=== PATIENT | male | born 1950 | race Caucasian/White ===

== ENCOUNTER 2017-08-11 18:02 | Inpatient (IN) | payer MEDICARE ==
[2017-08-11 19:00] LABS: PTT 29.9 SEC (22.9-36.1)
[2017-08-11 19:03] LABS: Hematocrit 20.2 % (42.0-52.0); Mean Platelet Volume 6.3 fL (7.4-10.4); Red Blood Cell (RBC) Count 2.57 mill/uL (4.70-6.10); White Blood Cell (WBC) Count 6.1 thou/uL (4.8-10.8)
[2017-08-11 19:09] LABS: ALT (SGPT) 29 U/L (8-55); AST (SGOT) 33 U/L (5-34); Alkaline Phosphatase 101 U/L (40-150); Anion Gap 13 mmol/L (10-20); BUN (Urea Nitrogen) 27 mg/dL (8.4-25.7); Bilirubin, Total 0.2 mg/dL (0.2-1.2); CK (CPK) 465 U/L (30-200); Calc. Creatinine Clearance 0 mL/min (70-130); Calcium 8.5 mg/dL (7.8-10.44); Carbon Dioxide 22 mmol/L (23-31); Chloride 106 mmol/L (98-107); Estimated GFR-MDRD 90; Globulin 3.2 g/dL (2.4-3.5); Lipase 74 U/L (8-78); Protein, Total 6.7 g/dL (5.8-8.1)
[2017-08-11 19:21] LABS: Anisocytosis SLIGHT = 6-15 cells (100X) (0-5/hpf); Band 8 % (5-11); Hypochromia SLIGHT = 6-15 cells (100X) (0-5/hpf); Microcytosis SLIGHT = 6-15 cells (100X) (0-5/hpf); Neutrophil 71 % (42-75); Nucleated RBC 2 % (0); Ovalocytes SLIGHT = 2-5 cells (100X) (0-1/hpf); Polychromasia MODERATE = 3-4 cells (100X) (0-2/hpf); Schistocytes SLIGHT = 2-5 cells (100X) (0-1/hpf); Spherocytes SLIGHT = 1-5 cells (100X) (None Seen); Target Cells SLIGHT = 2-5 cells (100X) (0-1/hpf)
[2017-08-11] MEDS ORDERED: Ondansetron HCl/PF 4 MG/2 ML Vial IVP PRN (20:42)
[2017-08-11] MEDS ORDERED: HYDROcodone/Acetaminophen 5/325 mg Tablet PO PRN (20:42)
[2017-08-11] MEDS ORDERED: Acetaminophen 325 MG TAB PO PRN (20:42)
--- NOTE | 2017-08-11 20:42 | PDOC.EVN ---
Event Note - Event Note Event Note: [id number] H&p dictated 1. Acute on chronic anemia 2. Barrets esophagus 3. H/O BipolaR PLAn; SEE ORDERS disorder
[2017-08-11] MEDS ORDERED: Sodium Chloride 0.9% 1,000 ML IV SCH (20:45)
[2017-08-11 21:40] VITALS: BMI 21.9
--- NOTE | 2017-08-11 23:22 | ULT ---
BILATERAL LOWER EXTREMITY VENOUS DOPPLER ULTRASOUND: 08/11/17 HISTORY: Uncontrollable constant leg movement of the bilateral lower extremities, spinal stenosis. TECHNIQUE: Gifford scale ultrasound with color flow and spectral doppler imaging of the deep venous systems of the lower extremities performed bilaterally. FINDINGS: There is good flow, compression and augmentation noted in the common femoral, femoral, deep femoral, popliteal, and posterior tibial and greater saphenous veins on either side. IMPRESSION: No evidence of DVT in either lower extremity. POS: JULIAN
--- NOTE | 2017-08-12 02:03 | HP ---
DATE OF ADMISSION: 08/11/2017 CHIEF COMPLAINT: Weakness and abnormal labs. HISTORY OF PRESENT ILLNESS: Patient is a 67-year-old male with past medical history of erosive reanna ritis, microcytic anemia, Jackson's esophagus, bipolar disorder, who came to the ER because of the a nemia and weakness. Patient does have weakness for the past few weeks with loss of strength, patien t went to the PCP and had routine lab work done and patient was found to be anemic, so patient was a dvised to come to the ER. Patient denies any chest pain, denies any palpations, denies lightheadedn ess, denies nausea, denies vomiting. He complains of some bilateral lower extremity swelling also. Denies any fever, denies any chills. Denies palpitations, denies syncope, denies any bleeding per rectum. Denies any melena, denies any black stools. PAST MEDICAL HISTORY: As per HPI. PAST SURGICAL HISTORY: EGD, back surgeries, hip surgeries. SOCIAL HISTORY: Denies smoking, denies alcohol, denies any drugs. FAMILY HISTORY: Denies any heart problems. REVIEW OF SYSTEMS: Constitutional: Denies any fever, denies any chills. Positive for fatigue. Ey es: Denies vision problems. Ears: Denies hearing loss. Neck: Denies any neck pain. Cardiovascu lar system: Denies any chest pain, denies palpitations. Respiratory system: Denies any cough, den ies sputum production. Gastrointestinal: Denies nausea, vomiting. Cranial nerve system: Denies s yncope, denies lightheadedness. Psychiatric: Denies anxiety. Integumentary: Denies any rash. Mu sculoskeletal: Positive for bilateral lower extremity edema. All other review of systems are revie wed and are negative. PHYSICAL EXAMINATION: CONSTITUTIONAL/VITAL SIGNS: At the time of H and P performed, blood pressure is 141/102, heart rate 18, pulse ox 97%. GENERAL: The patient appears tired. Anterior nares patent. Nose normal. Ears: Normal. Teeth no rmal. Tongue is moist. NECK: Supple. No JVD. CARDIOVASCULAR SYSTEM: S1, S2 present. Regular rate and rhythm. No murmurs, no rubs, no gallops. RESPIRATORY SYSTEM: No wheezing, no rhonchi. Breath sounds bilaterally. GASTROINTESTINAL: Abdomen, soft, nontender, no guarding, no organomegaly, no masses felt. MUSCULOSKELETAL: 2+ edema present. INTEGUMENTARY: No rashes are seen. PSYCHIATRIC: Mood is appropriate at this time. CRANIAL NERVES SYSTEM: Awake, follows commands. Strength intact, sensory intact. LABORATORY DATA: At the time of H and P performed, white count 6.1, hemoglobin 6.1, platelet count is 418. BMP showed sodium 137, potassium 4, chloride 106, CO2 22, BUN 27, creatinine 0.85. PT 13, INR 1. ASSESSMENT AND PLAN: The patient is 67 years old male: 1. Acute on chronic anemia. Plan to check iron studies. Plan to type and cross and transfuse a un it of packed RBCs. We will monitor hemoglobin closely. Plan to consult GI to evaluate the patient. 2. History of Jackson's esophagus. Plan to start patient on Protonix 40 mg b.i.d. We will monitor the patient closely. 3. History of bipolar disorder. Continue home medications. 4. Elevated blood pressure. Monitor blood pressure, p.r.n. blood pressure meds. 5. Bilateral lower extremity edema. Plan to do ultrasound of the lower extremities to rule out any deep vein thrombosis. The case was discussed in detail with the patient and family members, and with RN also.
[2017-08-12] MEDS ORDERED: guaiFENesin ER 600 MG TAB PO SCH (04:00)
[2017-08-12 04:39] LABS: #Eosinphils 0.2 thou/uL (0.0-0.7); #Monocytes 0.8 thou/uL (0.11-0.59); %Basophils 0.3 % (0.0-1.0); %Eosinophils 3.1 % (0.0-10.0); %Lymphocytes 17.4 % (21.0-51.0); %Monocytes 12.5 % (0.0-10.0); Hematocrit 20.5 % (42.0-52.0); Mean Platelet Volume 6.3 fL (7.4-10.4); Red Blood Cell (RBC) Count 2.55 mill/uL (4.70-6.10)
[2017-08-12 05:05] LABS: Anion Gap 10 mmol/L (10-20); BUN (Urea Nitrogen) 21 mg/dL (8.4-25.7); Calc. Creatinine Clearance 86 mL/min (70-130); Calcium 8.1 mg/dL (7.8-10.44); Carbon Dioxide 23 mmol/L (23-31); Chloride 108 mmol/L (98-107); Estimated GFR-MDRD Greater than 90
[2017-08-12 05:44] LABS: Iron 25 ug/dL (65-175)
[2017-08-12] MEDS ORDERED: hydrALAZINE 20 MG/ML VIAL SLOW IVP PRN (07:02)
[2017-08-12] MEDS ORDERED: Milk Of Magnesia 30 ML UDCUP PO PRN (07:02)
[2017-08-12] MEDS ORDERED: Eucerin (Mineral Oil/Petrolatum,White) 30 gm Jar TOP PRN (07:02)
[2017-08-12] MEDS ORDERED: Temazepam 15 MG CAP PO PRN (07:02)
[2017-08-12] MEDS ORDERED: Diabetic Tussin 200 MG/10 ML UDCUP PO PRN (07:02)
[2017-08-12] MEDS ORDERED: Loperamide HCl 2 MG CAP PO PRN (07:02)
[2017-08-12] MEDS ORDERED: Loratadine 10 MG TAB PO PRN (07:02)
[2017-08-12] MEDS ORDERED: Senokot 8.6 MG TAB PO PRN (07:02)
[2017-08-12] MEDS ORDERED: Chloraseptic Spray 180 ml Bottle PO PRN (07:02)
[2017-08-12] MEDS ORDERED: Ondansetron ODT 4 MG TAB PO PRN (07:02)
[2017-08-12] MEDS ORDERED: Mag-Al 1200 mg/1200 mg/30 ML UDCUP PO PRN (07:02)
[2017-08-12] MEDS ORDERED: Sodium Chloride 0.65% Nasal 44 ML BOT EA NARE PRN (07:02)
[2017-08-12] MEDS: Ferrous Sulfate 325 MG TAB PO SCH ×2 (08:23→17:18)
[2017-08-12] MEDS: guaiFENesin ER 600 MG TAB PO SCH ×2 (08:23→20:54)
[2017-08-12] MEDS ORDERED: FLU VACC TS2017-18 (>65YR) 0.5 ML SYRINGE IM ONE (09:00)
--- NOTE | 2017-08-12 11:22 | PDOC.PN ---
- Subjective Encounter Start Date: 08/12/17 Encounter Start Time: 08:35 -: old records requested/rev pt is sleepy but arousable, no active GI bleeding, Patient seen and examined. No new complaints. No overnight events - Objective MAR Reviewed: Yes Vital Signs & Weight: Vital Signs (12 hours) Temp Pulse Pulse Resp BP BP Pulse Ox 08/12/17 08:35 98.3 F 81 18 167/91 H 08/12/17 08:00 97.6 F 78 16 93 L 08/12/17 07:21 97.6 F 78 16 155/89 H 93 L 08/12/17 06:31 98.2 F 84 17 160/83 H 98 08/12/17 06:14 97.7 F 85 18 167/89 H 97 08/12/17 04:16 98.2 F 87 24 H 153/81 H 97 08/11/17 23:33 98 F 90 18 147/82 H Weight Weight 140 lb I&O: 08/11/17 08/12/17 08/13/17 06:59 06:59 06:59 Intake Total 810 350 Balance 810 350 Result Diagrams: 08/12/17 03:31 08/12/17 03:31 Phys Exam - Physical Examination Constitutional: NAD HEENT: PERRLA, moist MMs, sclera anicteric Neck: no JVD, supple Respiratory: no wheezing, no rales, no rhonchi Cardiovascular: RRR, no significant murmur, no rub Gastrointestinal: soft, non-tender, no distention, positive bowel sounds Musculoskeletal: no edema, pulses present Neurological: non-focal, normal sensation, moves all 4 limbs Lymphatic: no nodes Psychiatric: normal affect Skin: no rash, normal turgor Dx/Plan (1) Symptomatic anemia Code(s): D64.9 - ANEMIA, UNSPECIFIED Status: Acute (2) Elevated blood pressure reading with diagnosis of hypertension Code(s): I10 - ESSENTIAL (PRIMARY) HYPERTENSION Status: Acute (3) Chronic headaches Code(s): R51 - HEADACHE Status: Chronic (4) Esophagitis, erosive Code(s): K22.10 - ULCER OF ESOPHAGUS WITHOUT BLEEDING Status: Chronic (5) Iron deficiency anemia Code(s): D50.9 - IRON DEFICIENCY ANEMIA, UNSPECIFIED Status: Chronic Qualifiers: (6) Lumbar spinal stenosis Code(s): M48.06 - SPINAL STENOSIS, LUMBAR REGION * DO NOT USE * Status: Chronic - Plan cont current plan of care * monitor BP and start BP meds with lisinopril * GI consulted * getting blood transfusion * medication reviewed as below * symptomatic treatment. Review of Systems - Review of Systems ENT: negative: Ear Pain, Ear Discharge, Nose Pain, Nose Discharge, Nose Congestion, Mouth Pain, Mouth Swelling, Throat Pain, Throat Swelling, Other Respiratory: negative: Cough, Dry, Shortness of Breath, Hemoptysis, SOB with Excertion, Pleuritic Pain, Sputum, Wheezing Cardiovascular: negative: Chest Pain, Palpitations, Orthopnea, Paroxysmal Noc. Dyspnea, Edema, Light Headedness, Other Gastrointestinal: negative: Nausea, Vomiting, Abdominal Pain, Diarrhea, Constipation, Melena, Hematochezia, Other Genitourinary: negative: Dysuria, Frequency, Incontinence, Hematuria, Retention , Other Musculoskeletal: negative: Neck Pain, Shoulder Pain, Arm Pain, Back Pain, Hand Pain, Leg Pain, Foot Pain, Other - Medications/Allergies Allergies/Adverse Reactions: Allergies Allergy/AdvReac Type Severity Reaction Status Date / Time No Known Drug Allergies Allergy Verified 08/11/17 21:38 Medications: Current Medications Acetaminophen (Tylenol) 650 mg PO Q4H PRN PRN Reason: Headache/Fever or Pain Hydrocodone Bitart/Acetaminophen ([place] 5/325) 1 tab PO Q4H PRN PRN Reason: Moderate Pain (4-6) Al Hydroxide/Mg Hydroxide (Maalox) 15 ml PO Q4H PRN PRN Reason: Heartburn or Indigestion Ferrous Sulfate (Feosol) 325 mg PO BID-[facility] Last Admin: 08/12/17 08:23 Dose: 325 mg Guaifenesin (Mucinex) 600 mg PO Q12HR [facility] Last Admin: 08/12/17 08:23 Dose: 600 mg Guaifenesin (Robitussin Sf) 200 mg PO Q4H PRN PRN Reason: Cough Hydralazine HCl (Apresoline) 10 mg SLOW IVP Q4H PRN PRN Reason: Systolic BP > 180 Loperamide HCl (Imodium) 2 mg PO PRN PRN PRN Reason: Diarrhea/Loose Stools Loratadine (Claritin) 10 mg PO DAILYPRN PRN PRN Reason: Sinus Symptoms Magnesium Hydroxide (Milk Of Magnesium) 30 ml PO DAILYPRN PRN PRN Reason: Constipation Mineral Oil/White Petrolatum (Eucerin Cream) 0 gm TOP BIDPRN PRN PRN Reason: Dry Skin Ondansetron HCl (Zofran) 4 mg IVP Q6H PRN PRN Reason: Nausea/Vomiting Ondansetron HCl (Zofran Odt) 4 mg PO Q6H PRN PRN Reason: Nausea/Vomiting Pantoprazole Sodium (Protonix) 40 mg PO BID [facility] Last Admin: 08/12/17 08:23 Dose: 40 mg Phenol (Chloraseptic [place] 180 Ml Bot) 0 ml PO PRN PRN PRN Reason: Sore Throat Senna (Senokot) 2 tab PO HSPRN PRN PRN Reason: Constipation Sodium Chloride (Flush - Normal Saline) 10 ml IVF Q12HR [facility] Last Admin: 08/12/17 08:23 Dose: Not Given Sodium Chloride (Flush - Normal Saline) 10 ml IVF PRN PRN PRN Reason: Saline Flush Sodium Chloride ([place] Nasal [place] 0.65%) 0 ml EA NARE QIDPRN PRN PRN Reason: Nasal Congestion Temazepam (Restoril) 15 mg PO HSPRN PRN PRN Reason: Insomnia
[2017-08-12] MEDS ORDERED: Lisinopril 5 MG TAB PO SCH (12:20)
--- NOTE | 2017-08-12 14:24 | CON ---
DATE OF CONSULTATION: 08/12/2017 REFERRING PHYSICIAN: [facility] Boliv[facility] REASON FOR CONSULTATION: Symptomatic anemia. HISTORY OF PRESENT ILLNESS: Mr. Yobani Quach is a 67-year-old male who has been seeing Nydia Hall for many years. The patient has been feeling tired and having poor energy over the last several weeks. The patient was seen by Dr. Hall and had a CBC done. He was found to have s evere anemia with a hemoglobin of 6.1. The patient was advised to go the ER for admission. The pat ron has had anemia over the years. He has seen Dr. Dagoberto Bass in 06/2015 with severe anemi a. At that time the hemoglobin was as low as 4.8. He was transfused. The anemia have is actually microcytic. The patient had a colonoscopy by Dr. Bass was in June of 2015 and was found to h ave an ulcer in the rectosigmoid junction. It was felt the ulcer was most likely from the NSAID med ications he was taking before. An EGD done revealing severe erosive esophagitis and Jackson's muco sa. The patient has been hospitalized subsequently again in 2015 and he was seen again by Dr. Darek bergeron. He had an EGD in August of 2016 and was found to have a hiatus hernia and also Jackson's mucos a. The patient is a very fragile looking skinny male. He says his weight is the same as before. N o history of any weight loss. The patient denies abdominal pain, nausea, vomiting. No history of d ysphagia or odynophagia. No hematochezia or any melena. His bowel movements are fairly regular. H e also denies a history of hematuria. The patient has had chronic back pain and has had multiple jack rgeries over the years. He does take NSAID medicines off and on. Although he has history of bipola r disorder, he is not taking medicines. There is also questionable history of ADHD. The admitting CBC showed hemoglobin 6.1, hematocrit 20.2, MCV 78.8. He is receiving blood transfusi on at the present time. The patient has no other relevant history. ALLERGIES: None. SOCIAL HISTORY: The patient does not smoke or drink alcohol. MEDICAL ILLNESSES: 1. Chronic acid reflux. 2. Jackson's mucosa. 3. Hiatus hernia. 4. Bipolar disorder. 5. Degenerative joint disease of the back and has had multiple surgeries. SURGERIES: 1. Multiple surgeries, back surgeries. 2. Hernia repair. 3. EGD and colonoscopy in 2015 and repeat EGD in 2016. MEDICATIONS: List reviewed. He is on lisinopril, loperamide, magnesium, ferrous sulfate, hydrocodo ne. FAMILY HISTORY: Unremarkable. SOCIAL HISTORY: The patient lives alone in [place]. He has no immediate family in the vicinity. 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 RESPIRATORY: No history of chronic cough, hemoptysis, dyspnea. CARDIOVASCULAR: No chest pain, no palpitations, exertional dyspnea, orthopnea or PND. GASTROINTESTINAL: As in history of present illness. GENITOURINARY: No dysuria, hematuria or frequency of urination. MUSCULOSKELETAL: History of chronic back pain and does take NSAID medicines on a regular basis. NEUROPSYCHIATRIC: He has a history of ADHD and bipolar disorder. He is not taking any medication. ENDOCRINE/HEMATOLOGICAL: Unremarkable. PHYSICAL EXAMINATION: GENERAL: He is a very fragile looking male, appears comfortable. He is awake, alert, oriented to t arleen, place and person. VITAL SIGNS: Temperature 98.3 degrees Fahrenheit, pulse 78, blood pressure is 167/91. HEENT: Conjunctivae are clear. NECK: Supple. No adenitis or thyromegaly noted. CARDIOVASCULAR: First and second heart sounds normal. LUNGS: Clear to auscultation. ABDOMEN: Soft to palpate. Abdomen is nontender. There is no organomegaly or masses. EXTREMITIES: Reveal no edema. LABORATORY: On admission: WBC 6100, hemoglobin 6.1, hematocrit 20.2, MCV 78.8, platelet count 418, 000, polymorphs 71, lymphocytes 16. Serum chemistries show sodium 137, potassium 4.0, chloride 106, bicarbonate 22, BUN is 27, creatinine 0.85. Serum iron is 25, TIBC 364. CLINICAL IMPRESSION: Recurrent microcytic anemia. He does take NSAID medication on a regular basis because of chronic back pain. The patient has had similar episodes in the past. He was admitted 2 and also in 2016. An EGD showed Jackson's mucosa, hiatus hernia. A colonoscopy in 2014 was bas ically negative. Based on the above information, I believe he has anemia most likely from regular u se of NSAID medication. The patient has no history of overt gastrointestinal bleeding. RECOMMENDATIONS: 1. Transfuse. 2. Follow up H\T\H. 3. I did speak to Mr. Quach about having EGD and colonoscopy. He is agreeable. I will plan for the procedure tomorrow. I will make further recommendations. If the endoscopy fails to reveal any definite pathology, I will refer to Hematology for opinion and treatment.
[2017-08-12] MEDS ORDERED: GoLYTELY 4,000 ml Bottle PO SCH (17:00)
[2017-08-12] MEDS: Lisinopril 5 MG TAB PO SCH (20:54)
[2017-08-13 04:42] LABS: #Eosinphils 0.1 thou/uL (0.0-0.7); #Lymphocytes 0.8 thou/uL (1.20-3.40); #Monocytes 0.5 thou/uL (0.11-0.59); #Neutrophils 3.6 thou/uL (1.40-6.50); %Eosinophils 2.2 % (0.0-10.0); %Monocytes 10.4 % (0.0-10.0); Hematocrit 30.9 % (42.0-52.0); Mean Platelet Volume 6.3 fL (7.4-10.4); Red Blood Cell (RBC) Count 3.78 mill/uL (4.70-6.10)
[2017-08-13 05:01] LABS: Anion Gap 10 mmol/L (10-20); BUN (Urea Nitrogen) 9 mg/dL (8.4-25.7); Calc. Creatinine Clearance 92 mL/min (70-130); Calcium 8.4 mg/dL (7.8-10.44); Carbon Dioxide 27 mmol/L (23-31); Chloride 104 mmol/L (98-107); Estimated GFR-MDRD Greater than 90
[2017-08-13] MEDS ORDERED: Benzocaine 20% Spray 60 ML CAN ONE (08:01)
[2017-08-13] MEDS ORDERED: Lidocaine 1% PF 5 ML VIAL ONE (08:40)
[2017-08-13] MEDS ORDERED: Propofol 200 MG/20 ML VIAL ONE (08:40)
[2017-08-13] MEDS ORDERED: PHENYLEPHRINE-NS 100 MCG/ML 10 ML SYRINGE ONE ×2 (08:40→09:37)
[2017-08-13] MEDS ORDERED: Potassium Chloride 20 MEQ TAB PO SCH (09:00)
[2017-08-13] MEDS ORDERED: Meperidine HCl/PF 25 MG/ML VIAL SLOW IVP PRN (09:30)
[2017-08-13] MEDS ORDERED: Morphine Sulfate 2 MG/ML SYRINGE SLOW IVP PRN (09:30)
[2017-08-13] MEDS ORDERED: Ondansetron HCl/PF 4 MG/2 ML Vial IVP PRN (09:30)
[2017-08-13] MEDS ORDERED: Promethazine HCl 25 MG/ML VIAL SLOW IVP PRN (09:30)
[2017-08-13] MEDS ORDERED: Promethazine HCl 25 MG/ML VIAL IM PRN (09:30)
[2017-08-13] MEDS: guaiFENesin ER 600 MG TAB PO SCH ×2 (10:16→13:31)
[2017-08-13] MEDS: Ferrous Sulfate 325 MG TAB PO SCH ×2 (10:16→17:44)
[2017-08-13] MEDS: Lisinopril 5 MG TAB PO SCH (10:17)
--- NOTE | 2017-08-13 11:12 | PDOC.PN ---
- Subjective Encounter Start Date: 08/13/17 Encounter Start Time: 08:20 Patient seen and examined. No new complaints. No overnight events - Objective MAR Reviewed: Yes Vital Signs & Weight: Vital Signs (12 hours) Temp Pulse Resp BP BP Pulse Ox 08/13/17 10:17 64 100/68 08/13/17 08:15 98.2 F 72 16 150/88 H 96 Weight Weight 140 lb I&O: 08/12/17 08/13/17 08/14/17 06:59 06:59 06:59 Intake Total 810 5350 Balance 810 5350 Result Diagrams: 08/13/17 03:33 08/13/17 03:33 Phys Exam - Physical Examination Constitutional: NAD HEENT: PERRLA, moist MMs, sclera anicteric Neck: no JVD, supple Respiratory: no wheezing, no rales, no rhonchi Cardiovascular: RRR, no significant murmur, no rub Gastrointestinal: soft, non-tender, no distention, positive bowel sounds Musculoskeletal: no edema, pulses present Neurological: non-focal, normal sensation, moves all 4 limbs Psychiatric: normal affect, A&O x 3 Skin: no rash, normal turgor Dx/Plan (1) Symptomatic anemia Code(s): D64.9 - ANEMIA, UNSPECIFIED Status: Acute (2) Elevated blood pressure reading with diagnosis of hypertension Code(s): I10 - ESSENTIAL (PRIMARY) HYPERTENSION Status: Acute (3) Chronic headaches Code(s): R51 - HEADACHE Status: Chronic (4) Esophagitis, erosive Code(s): K22.10 - ULCER OF ESOPHAGUS WITHOUT BLEEDING Status: Chronic (5) Iron deficiency anemia Code(s): D50.9 - IRON DEFICIENCY ANEMIA, UNSPECIFIED Status: Chronic Qualifiers: (6) Lumbar spinal stenosis Code(s): M48.06 - SPINAL STENOSIS, LUMBAR REGION * DO NOT USE * Status: Chronic - Plan cont current plan of care, plan discussed w/ family * proper response with blood transfusion * s/p EGD and colonoscopy today, found with ulcer * will repeat labs tomorrow * regular diet * if H & H stable tomorrow, will discharge tomorrow * advised to avoid nsaid and alcohol * medication reviewed as below * symptomatic treatment. Review of Systems - Review of Systems ENT: negative: Ear Pain, Ear Discharge, Nose Pain, Nose Discharge, Nose Congestion, Mouth Pain, Mouth Swelling, Throat Pain, Throat Swelling, Other Respiratory: negative: Cough, Dry, Shortness of Breath, Hemoptysis, SOB with Excertion, Pleuritic Pain, Sputum, Wheezing Cardiovascular: negative: Chest Pain, Palpitations, Orthopnea, Paroxysmal Noc. Dyspnea, Edema, Light Headedness, Other Gastrointestinal: negative: Nausea, Vomiting, Abdominal Pain, Diarrhea, Constipation, Melena, Hematochezia, Other Genitourinary: negative: Dysuria, Frequency, Incontinence, Hematuria, Retention , Other Musculoskeletal: negative: Neck Pain, Shoulder Pain, Arm Pain, Back Pain, Hand Pain, Leg Pain, Foot Pain, Other Skin: negative: Rash, Lesions, Guillermo, Bruising, Other - Medications/Allergies Allergies/Adverse Reactions: Allergies Allergy/AdvReac Type Severity Reaction Status Date / Time No Known Drug Allergies Allergy Verified 08/11/17 21:38 Medications: Current Medications Acetaminophen (Tylenol) 650 mg PO Q4H PRN PRN Reason: Headache/Fever or Pain Last Admin: 08/13/17 06:19 Dose: 650 mg Hydrocodone Bitart/Acetaminophen ([place] 5/325) 1 tab PO Q4H PRN PRN Reason: Moderate Pain (4-6) Al Hydroxide/Mg Hydroxide (Maalox) 15 ml PO Q4H PRN PRN Reason: Heartburn or Indigestion Ferrous Sulfate (Feosol) 325 mg PO BID-[facility] Last Admin: 08/13/17 10:16 Dose: 325 mg Guaifenesin (Mucinex) 600 mg PO Q12HR [facility] Last Admin: 08/13/17 10:16 Dose: 600 mg Guaifenesin (Robitussin Sf) 200 mg PO Q4H PRN PRN Reason: Cough Hydralazine HCl (Apresoline) 10 mg SLOW IVP Q4H PRN PRN Reason: Systolic BP > 180 Lisinopril (Zestril) 5 mg PO BID [facility] Last Admin: 08/13/17 10:17 Dose: Not Given Loperamide HCl (Imodium) 2 mg PO PRN PRN PRN Reason: Diarrhea/Loose Stools Loratadine (Claritin) 10 mg PO DAILYPRN PRN PRN Reason: Sinus Symptoms Magnesium Hydroxide (Milk Of Magnesium) 30 ml PO DAILYPRN PRN PRN Reason: Constipation Meperidine HCl (Pacu-Demerol) 12.5 mg SLOW IVP ONE PRN PRN Reason: Shivering Stop: 08/13/17 12:30 Mineral Oil/White Petrolatum (Eucerin Cream) 0 gm TOP BIDPRN PRN PRN Reason: Dry Skin Morphine Sulfate (Pacu-Morphine Sulfate) 2 mg SLOW IVP Q10MIN PRN PRN Reason: Moderate to Severe Pain (6-10) Stop: 08/13/17 12:30 Ondansetron HCl (Zofran) 4 mg IVP Q6H PRN PRN Reason: Nausea/Vomiting Ondansetron HCl (Zofran Odt) 4 mg PO Q6H PRN PRN Reason: Nausea/Vomiting Ondansetron HCl (Pacu-Zofran) 4 mg IVP ONE PRN PRN Reason: Nausea/Vomiting Stop: 08/13/17 12:30 Pantoprazole Sodium (Protonix) 40 mg PO BID [facility] Last Admin: 08/13/17 10:16 Dose: 40 mg Phenol (Chloraseptic [place] 180 Ml Bot) 0 ml PO PRN PRN PRN Reason: Sore Throat Promethazine HCl (Pacu-Phenergan) 6.25 mg SLOW IVP ONE PRN PRN Reason: Nausea/Vomiting Stop: 08/13/17 12:30 Promethazine HCl (Pacu-Phenergan) 6.25 mg IM ONE PRN PRN Reason: Nausea/Vomiting Stop: 08/13/17 12:30 Senna (Senokot) 2 tab PO HSPRN PRN PRN Reason: Constipation Sodium Chloride (Flush - Normal Saline) 10 ml IVF Q12HR [facility] Last Admin: 08/12/17 20:54 Dose: 10 ml Sodium Chloride (Flush - Normal Saline) 10 ml IVF PRN PRN PRN Reason: Saline Flush Sodium Chloride ([place] Nasal [place] 0.65%) 0 ml EA NARE QIDPRN PRN PRN Reason: Nasal Congestion Sodium Chloride (Flush - Normal Saline) 10 ml IVF PRN PRN PRN Reason: Saline Flush Sodium Chloride (Flush - Normal Saline) 10 ml IVF PRN PRN PRN Reason: Saline Flush Temazepam (Restoril) 15 mg PO HSPRN PRN PRN Reason: Insomnia
--- NOTE | 2017-08-13 15:15 | DIS ---
PRIMARY CARE PHYSICIAN: Dr. Gus Ramos. DATE OF ADMISSION: 08/11/2017 DATE OF DISCHARGE: 08/13/2017 DISCHARGE DISPOSITION: Home. PRIMARY DISCHARGE DIAGNOSES: 1. Symptomatic iron deficiency anemia. 2. Hypertension. SECONDARY DISCHARGE DIAGNOSES: 1. Lumbar stenosis. 2. Chronic iron deficiency anemia. 3. Erosive esophagitis. 4. Peptic ulcer disease. 5. Chronic headache. PRIMARY PROCEDURES/OPERATIONS: EGD and colonoscopy. RADIOLOGICAL INVESTIGATION: Ultrasound was negative for any DVT. SIGNIFICANT LABORATORY DATA: WBC 5.0, hemoglobin 9.7, platelets 310. INR 1.0 Sodium 138, potassiu m 3.4, BUN 9, creatinine 0.69, calcium 8.4, ferritin 7.36, and folate 12.40. DISCHARGE MEDICATIONS: Protonix 40 mg p.o. b.i.d., lisinopril 5 mg p.o. b.i.d., ferrous sulfate 325 mg p.o. b.i.d. CONTRAINDICATIONS: None. CODE STATUS: FULL CODE. INPATIENT CONSULTANTS: Dr. Trammell was consulted while in hospital. TEST RESULTS PENDING ON DISCHARGE: None. ALLERGIES: No known drug allergy. DISCHARGE PLAN: Post hospital, the patient will follow up with primary care physician and Dr. Marilu garcia. HOSPITAL COURSE: A 67-year-old male, who was admitted by Dr. Alcazar, please see his H\T\P for fur ther details. The patient was having symptomatic anemia. On admission, his hemoglobin was 6.1 and he was given 3 units of blood transfusion and he had an appropriate response of hemoglobin to 9.7. The patient underwent upper and lower endoscopy by Dr. Trammell, and the patient was found with pep tic ulcer disease. The patient is given Protonix therapy. He was given instructions to avoid NSAID s. He was given also counseling to avoid alcohol, smoking, or any caffeinated products. At this point, the patient is given potassium on discharge. After the procedure, he wants to go rachell e. The patient is seen and examined at bedside today. Plan of care discussed with the family ellie palmer Total time spent on discharge day 31 minutes.
--- NOTE | 2017-08-13 16:48 | OP ---
DATE OF PROCEDURE: 08/13/2017 OPERATIVE PROCEDURE: Esophagogastroduodenoscopy with biopsy. PREOPERATIVE DIAGNOSIS: A 67-year-old male with severe microcytic anemia, past history of Jackson's mucosa. The patient is undergoing esophagogastroduodenoscopy. POSTOPERATIVE DIAGNOSES: 1. Large ulceration in the distal esophagus with ulcers extending all the way up to 20 cm. 2. Mild luminal narrowing, but the scope was advanced into the stomach without difficulty. PROCEDURE IN DETAIL: The patient was placed on his left lateral position and was given sedation by Anesthesia Department. A Pentax video gastroscope under direct vision was passed down the oropharyn x, past the gastroesophageal junction, into the stomach and subsequently into the descending duodenu m. The patient has a very large ulceration over the distal esophagus around 35 cm from the oral inc isura. The ulcer . There was an area of ulceration extending all the way up to 25 cm. Biops ies were obtained from the area. The lumen appeared slightly narrow, but the scope was advanced eas diana into the stomach without difficulty. Retroflexion failed to show any pathology in the fundus or cardia. The patient has had a hiatus hernia. The gastric antrum and gastric body, no pathology se en. The duodenal bulb and descending duodenum, no pathology seen. The stomach was decompressed and the scope removed. RECOMMENDATIONS: 1. Protonix 40 mg once a day. 2. Iron supplement.
--- NOTE | 2017-08-13 17:01 | OP ---
DATE OF PROCEDURE: 08/13/2017 OPERATIVE PROCEDURE: Colonoscopy. PREOPERATIVE DIAGNOSIS: Microcytic anemia. POSTOPERATIVE DIAGNOSIS: Hemorrhoids. Otherwise, the examination was normal. PROCEDURE IN DETAIL: The patient was placed on his left lateral position and was given sedation by Anesthesia Department. A rectal exam was done before the scope was advanced into the rectum. No le sions were felt on rectal exam. A Pentax video colonoscope was introduced into the rectum and advan elisabeth all the way into the cecum. The prep was good. The mucosa appeared normal. The appendiceal or ifice, ileocecal valve, and cecum, no pathology seen. The ascending colon, hepatic flexure, transve rse colon, and splenic flexure, no lesions seen. The descending colon and sigmoid colon, no lesions seen. Retroflexion of the scope in the rectum showed hemorrhoids. OVERALL IMPRESSION: This is a 67-year-old male with iron deficiency anemia and past history of [place] ett's mucosa. He underwent a colonoscopy, which was negative. The esophagogastroduodenoscopy showe d a large ulceration in the distal esophagus, hiatal hernia. RECOMMENDATIONS: 1. Protonix 40 mg once a day. 2. Iron supplement. 3. From a GI standpoint, the patient can be discharged home. The patient will follow up with Dr. Mireya Hall and also Dr. Dagoberto Bass.
[2017-08-13 20:42] VITALS: BP 143/80; TEMP 98.5
== END 2017-08-13 20:53 | disposition home or self-care (01) | DRG 812 ==
LOC: ERS 18:02 → T4-A 19:40
PROVIDERS: ADMIT Internal Medicine; ATTEND Internal Medicine
PROC: 30233N1 Transfusion of Nonautologous Red Blood Cells into Peripheral Vein, Percutaneous Approach (ICD-10-PCS; 2017-08-11)
PROC: 0DB38ZX Excision of Lower Esophagus, Via Natural or Artificial Opening Endoscopic, Diagnostic (ICD-10-PCS; principal; 2017-08-13)
PROC: 0D9780Z Drainage of Stomach, Pylorus with Drainage Device, Via Natural or Artificial Opening Endoscopic (ICD-10-PCS; 2017-08-13)
PROC: 0DJD8ZZ Inspection of Lower Intestinal Tract, Via Natural or Artificial Opening Endoscopic (ICD-10-PCS; 2017-08-13)
DX: D50.9 Iron deficiency anemia, unspecified (principal); M41.9 Scoliosis, unspecified; K27.9 Peptic ulcer, site unspecified, unspecified as acute or chronic, without hemorrhage or perforation; I10 Essential (primary) hypertension; K22.70 Barrett's esophagus without dysplasia; F31.9 Bipolar disorder, unspecified; E78.5 Hyperlipidemia, unspecified; K44.9 Diaphragmatic hernia without obstruction or gangrene; K64.9 Unspecified hemorrhoids; M48.061 Spinal stenosis, lumbar region without neurogenic claudication; R51 Headache; M81.0 Age-related osteoporosis without current pathological fracture; Z96.649 Presence of unspecified artificial hip joint
CPT/HCPCS: 36415; 36416; 36430; 80048; 80053; 82274; 82550; 82728; 82746; 83540; 83550; 83690; 85025; 85610; 85652; 85730; 86850; 86900; 86901; 88305; 88312; 88313; 90471; 90682; 93005; 93970; A4216; G0008; J2001; J2704; P9016; Q2036

== ENCOUNTER 2018-01-03 18:01 | Observation (INO) | payer MEDICARE ==
[2018-01-03 18:30] LABS: #Eosinphils 0.1 thou/uL (0.0-0.7); #Lymphocytes 1.1 thou/uL (1.20-3.40); #Monocytes 0.6 thou/uL (0.11-0.59); #Neutrophils 3.4 thou/uL (1.40-6.50); %Basophils 0.3 % (0.0-1.0); %Eosinophils 1.7 % (0.0-10.0); %Lymphocytes 20.8 % (21.0-51.0); %Neutrophils 66.1 % (42.0-75.0); Hemoglobin 6.9 g/dL (14.0-18.0); Mean Corpuscular HGB CONC 29.3 g/dL (32.0-36.0); Mean Corpuscular Hemoglobin 21.6 pg (27.0-31.0); Mean Corpuscular Volume 73.9 fl (80.0-94.0); Mean Platelet Volume 6.4 fL (7.4-10.4); Platelet Count 284 thou/uL (130-400); RBC Distribution Width 16.1 % (11.5-14.5); Red Blood Cell (RBC) Count 3.19 mill/uL (4.70-6.10); White Blood Cell (WBC) Count 5.2 thou/uL (4.8-10.8)
[2018-01-03 18:45] LABS: Anisocytosis SLIGHT = 6-15 cells (100X) (0-5/hpf); Hypochromia MODERATE=16-30 cells (100X) (0-5/hpf); MDiff Complete? YES; Microcytosis SLIGHT = 6-15 cells (100X) (0-5/hpf); Ovalocytes SLIGHT = 2-5 cells (100X) (0-1/hpf); PLT Morphology Comment Appears Adequate; Polychromasia MODERATE = 3-4 cells (100X) (0-2/hpf); Reflex for Review?? NO; Spherocytes SLIGHT = 1-5 cells (100X) (None Seen); Target Cells SLIGHT = 2-5 cells (100X) (0-1/hpf)
[2018-01-03 18:51] LABS: ALT (SGPT) 21 U/L (8-55); AST (SGOT) 29 U/L (5-34); Albumin 3.6 g/dL (3.4-4.8); Alkaline Phosphatase 75 U/L (40-150); Anion Gap 13 mmol/L (10-20); BUN (Urea Nitrogen) 30 mg/dL (8.4-25.7); Bilirubin, Total 0.2 mg/dL (0.2-1.2); Calc. Creatinine Clearance 0 mL/min (70-130); Calcium 8.3 mg/dL (7.8-10.44); Carbon Dioxide 23 mmol/L (23-31); Chloride 105 mmol/L (98-107); Estimated GFR-MDRD 81; Globulin 2.4 g/dL (2.4-3.5); Glucose 109 mg/dL (80-115); Potassium 4.2 mmol/L (3.5-5.1); Sodium 137 mmol/L (136-145)
[2018-01-03] MEDS ORDERED: Pantoprazole 40 MG VIAL ONE (20:35)
[2018-01-03] MEDS ORDERED: Ondansetron HCl/PF 4 MG/2 ML Vial IVP PRN (21:06)
[2018-01-03] MEDS ORDERED: Acetaminophen 325 MG TAB PO PRN (21:06)
[2018-01-03] MEDS ORDERED: Pantoprazole 80 MG in Sodium Chloride 0.9% 100 ML IVP SCH (21:15)
[2018-01-03] MEDS ORDERED: Sodium Chloride 0.9% 1,000 ML IV SCH (21:15)
[2018-01-03 23:41] LABS: Hemoglobin 7.4 g/dL (14.0-18.0)
--- NOTE | 2018-01-04 01:25 | HP ---
REASON FOR ADMISSION: Severe iron deficiency anemia. HISTORY OF PRESENTING ILLNESS: The patient had gone for a routine visit to see his primary care physician, Dr. Hall. He was found to have had hemoglobin of 6 g and the patient was transferred here for transfusion. The patient has known history of prior GI bleed with esophageal erosions. He was last hospitalized here in July and had a colonoscopy where he was found to have had hemorrhoids. Upper endoscopy done by Dr. Irene on the same day showed large ulceration in the distal esophagus with ulcers extending all the way up to 20 cm. The patient is noncompliant with his iron pills and [place] and [place] is also broken and has no access to go get medications. He also forgets taking medications. 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 He has no complaints of abdominal pain or bloody stools at present. No complaints of vomiting blood or nausea. No complaints of chest pain, palpitation, PND, or orthopnea. 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 CURRENT MEDICATIONS: Nexium p.r.n. ALLERGIES: No known drug allergies. PERSONAL HISTORY: Does not abuse alcohol or drugs. No history of smoking. The patient lives alone. He is , has no children. He is not in touch with his siblings. FAMILY HISTORY: Mother lived up to 100 years old. Father in his 80s from old age. REVIEW OF SYSTEMS: The following complete review of systems was negative, unless otherwise mentioned in the HPI or below: Constitutional: Weight loss or gain, ability to conduct usual activities. Skin: Rash, itching. Eyes: Double vision, pain. ENT/Mouth: Nose bleeding, neck stiffness, pain, tenderness. Cardiovascular: Palpitations, dyspnea on exertion, orthopnea. Respiratory: Shortness of breath, wheezing, cough, hemoptysis, fever or night sweats. Gastrointestinal: Poor appetite, abdominal pain, heartburn, nausea, vomiting, constipation, or diarrhea. Genitourinary: Urgency, frequency, dysuria, nocturia. Musculoskeletal: Pain, swelling. Neurologic/Psychiatric: Anxiety, depression. Allergy/Immunologic: Skin rash, bleeding tendency. PHYSICAL EXAMINATION: GENERAL: The patient is a 67-year-old male who is currently not in any acute distress. VITAL SIGNS: Blood pressure 126/74, pulse 82 per minute, respiratory rate 18 per minute, temperature 98.5 degrees Fahrenheit, saturating 97% on room air. NECK: Supple, no elevated JVD. HEENT: Eyes, extraocular muscles intact. Pupils reacting to light. Oral cavity, there is pallor, no exudates or congestion. CARDIOVASCULAR SYSTEM: S1, S2 heard. Regular rhythm. RESPIRATORY SYSTEM: Air entry 1+ bilateral. Scattered rhonchi plus, no rales or wheezes. ABDOMEN: Soft, bowel sounds heard. No tenderness, rigidity, or guarding. EXTREMITIES: No peripheral edema or calf tenderness. VASCULAR SYSTEM: Peripheral pulses 1+ bilateral, no ischemic ulcerations or gangrene. CENTRAL NERVOUS SYSTEM: No gross focal deficits seen. The patient is alert, awake, oriented x3. PSYCHIATRIC SYSTEM: The patient's mood is euthymic. No hallucinations or delusions. LABORATORY AND X-RAY FINDINGS: H and H is 6.9 and 23. His last discharge H and H was 9.7 and 13 in 07/2017, platelet count 284. MCV is 73, BUN 30, creatinine 0.9. Serum iron is 10, ferritin is 3.20, glucose 109. Liver enzymes are within normal limits. Albumin is 3.6. Stool occult blood done in the ER is negative. 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 He will be placed on Protonix drip for now. We will also obtain serial hemoglobin and hematocrit, 1 unit of transfusion has been started in the ER. We will consult Dr. Avery Harrell for possible upper endoscopy as the patient is known to be noncompliant with medications. He also takes Excedrin on a p.r.n. basis for body aches and pains. Prior to discharge, he needs to be prescribed ferrous sulfate with at least 4-5 refills, and likely mail order pharmacy in view of the patient being unable to procure medications. We will continue to closely monitor him on medical floor. Dr. Avery Harrell is being reached by ER physician/Nurse practitioner. GELY
[2018-01-04 05:22] LABS: Hemoglobin 7.5 g/dL (14.0-18.0)
[2018-01-04] MEDS ORDERED: Mag-Al 1200 mg/1200 mg/30 ML UDCUP PO PRN (07:05)
[2018-01-04] MEDS ORDERED: Zolpidem Tartrate 5 MG TAB PO PRN (07:05)
[2018-01-04] MEDS ORDERED: Loratadine 10 MG TAB PO PRN (07:05)
[2018-01-04] MEDS ORDERED: Eucerin (Mineral Oil/Petrolatum,White) 30 gm Jar TOP PRN (07:05)
[2018-01-04] MEDS ORDERED: Ondansetron ODT 4 MG TAB PO PRN (07:05)
[2018-01-04] MEDS ORDERED: Milk Of Magnesia 30 ML UDCUP PO PRN (07:05)
[2018-01-04] MEDS ORDERED: Senokot 8.6 MG TAB PO PRN (07:05)
[2018-01-04] MEDS ORDERED: Calcium Carbonate 500 MG ChewTAB PO PRN (07:05)
[2018-01-04] MEDS ORDERED: Diabetic Tussin 200 MG/10 ML UDCUP PO PRN (07:05)
[2018-01-04] MEDS ORDERED: Artificial Tears 18 DROP/0.9 ML EA EYE PRN (07:05)
[2018-01-04] MEDS ORDERED: diphenhydrAMINE 50 MG/ML VIAL IVP PRN (07:05)
[2018-01-04] MEDS ORDERED: hydrALAZINE 20 MG/ML VIAL SLOW IVP PRN (07:05)
[2018-01-04] MEDS ORDERED: Loperamide HCl 2 MG CAP PO PRN (07:05)
[2018-01-04] MEDS ORDERED: HYDROcodone/Acetaminophen 5/325 mg Tablet PO PRN (07:05)
[2018-01-04] MEDS ORDERED: Chloraseptic Spray 180 ml Bottle PO PRN (07:05)
[2018-01-04] MEDS ORDERED: Sodium Chloride 0.65% Nasal 44 ML BOT EA NARE PRN (07:05)
[2018-01-04] MEDS ORDERED: Iron Sucrose Complex 200 MG, Admixture Fee 1 EACH in Sodium Chloride 0.9% 250 ML 250 ML IVPB SCH (07:15)
[2018-01-04] MEDS ORDERED: Sodium Ferric Gluconate 250 MG, Admixture Fee 1 EACH in Sodium Chloride 0.9% 250 ML 250 ML IVPB SCH (08:00)
--- NOTE | 2018-01-04 09:08 | PDOC.PN ---
- Subjective Encounter Start Date: 01/04/18 Encounter Start Time: 07:15 -: old records requested/rev Patient seen and examined. No new complaints. No overnight events pt want to eat, he does not have any active bleeding - Objective MAR Reviewed: Yes Vital Signs & Weight: Vital Signs (12 hours) Temp Pulse Pulse Resp BP BP BP 01/04/18 08:00 98.1 F 68 16 01/04/18 07:43 98.1 F 68 16 160/84 H 01/04/18 04:12 97.6 F 73 18 150/85 H 01/04/18 03:50 78 18 147/82 H 01/03/18 22:25 97.9 F 66 18 140/83 01/03/18 22:23 97.9 F 66 18 140/83 Pulse Ox 01/04/18 08:00 01/04/18 07:43 94 L 01/04/18 04:12 96 01/04/18 03:50 98 01/03/18 22:25 99 01/03/18 22:23 Weight Weight 128 lb I&O: 01/03/18 01/04/18 01/05/18 06:59 06:59 06:59 Intake Total 578.4 Output Total 400 Balance 178.4 Result Diagrams: 01/04/18 04:31 01/03/18 18:21 EKG Reviewed by me: Yes (nsr) Phys Exam - Physical Examination Constitutional: NAD HEENT: PERRLA, moist MMs, sclera anicteric pallor+ Neck: no JVD, supple Respiratory: no wheezing, no rales Cardiovascular: RRR, no rub soft systolic murmur+ Gastrointestinal: soft, non-tender, no distention, positive bowel sounds Musculoskeletal: no edema, pulses present Neurological: non-focal, normal sensation, moves all 4 limbs Lymphatic: no nodes Psychiatric: normal affect, A&O x 3 Skin: no rash, normal turgor Dx/Plan (1) Symptomatic anemia Code(s): D64.9 - ANEMIA, UNSPECIFIED Status: Acute (2) Chronic headaches Code(s): R51 - HEADACHE Status: Chronic (3) Esophagitis, erosive Code(s): K22.10 - ULCER OF ESOPHAGUS WITHOUT BLEEDING Status: Chronic (4) Hypertension Code(s): I10 - ESSENTIAL (PRIMARY) HYPERTENSION Status: Chronic (5) Iron deficiency anemia Code(s): D50.9 - IRON DEFICIENCY ANEMIA, UNSPECIFIED Status: Chronic Qualifiers: (6) Lumbar spinal stenosis Code(s): M48.06 - SPINAL STENOSIS, LUMBAR REGION * DO NOT USE * Status: Chronic - Plan cont current plan of care * 1 unit prbc given * will give one dose of 200 mg IV venofer * GI consulted * will defer procedure decision to GI * continue protonix * medication reviewed as below * symptomatic treatment * dispo based on GI recommendation * avoidance of nsaid discussed. Review of Systems - Review of Systems Eyes: negative: Pain, Vision Change, Conjunctivae Inflammation, Eyelid Inflammation, Redness, Other ENT: negative: Ear Pain, Ear Discharge, Nose Pain, Nose Discharge, Nose Congestion, Mouth Pain, Mouth Swelling, Throat Pain, Throat Swelling, Other Respiratory: negative: Cough, Dry, Shortness of Breath, Hemoptysis, SOB with Excertion, Pleuritic Pain, Sputum, Wheezing Cardiovascular: negative: chest pain, palpitations, orthopnea, paroxysmal nocturnal dyspnea, edema, light headedness, other Gastrointestinal: negative: Nausea, Vomiting, Abdominal Pain, Diarrhea, Constipation, Melena, Hematochezia, Other Genitourinary: negative: Dysuria, Frequency, Incontinence, Hematuria, Retention , Other Musculoskeletal: negative: Neck Pain, Shoulder Pain, Arm Pain, Back Pain, Hand Pain, Leg Pain, Foot Pain, Other Skin: negative: Rash, Lesions, Guillermo, Bruising, Other - Medications/Allergies Allergies/Adverse Reactions: Allergies Allergy/AdvReac Type Severity Reaction Status Date / Time No Known Drug Allergies Allergy Verified 01/03/18 22:40 Medications: Current Medications Acetaminophen (Tylenol) 650 mg PO Q4H PRN PRN Reason: Headache/Fever or Pain Hydrocodone Bitart/Acetaminophen ([place] 5/325) 1 tab PO Q4H PRN PRN Reason: Moderate Pain (4-6) Last Admin: 01/04/18 08:25 Dose: 1 tab Al Hydroxide/Mg Hydroxide (Maalox) 15 ml PO Q4H PRN PRN Reason: Heartburn or Indigestion Artificial Tears (Tears Naturale) 0 drop EA EYE PRN PRN PRN Reason: Dry Eyes Calcium Carbonate (Tums) 1,000 mg PO Q4H PRN PRN Reason: Heartburn or Indigestion Diphenhydramine HCl (Benadryl) 25 mg IVP Q4H PRN PRN Reason: Itching Guaifenesin (Robitussin Sf) 200 mg PO Q4H PRN PRN Reason: Cough Hydralazine HCl (Apresoline) 10 mg SLOW IVP Q4H PRN PRN Reason: Systolic BP > 180 Pantoprazole Sodium 80 mg/ (Sodium Chloride) 100 mls @ 10 mls/hr IVP INF [facility] Last Admin: 01/03/18 23:56 Dose: 100 mls Ferric Sodium Gluconate Complex 250 mg/ Miscellaneous Medication 1 each/ Sodium Chloride 270 mls @ 135 mls/hr IVPB NOW [facility] Stop: 01/04/18 12:00 Loperamide HCl (Imodium) 2 mg PO PRN PRN PRN Reason: Diarrhea/Loose Stools Loratadine (Claritin) 10 mg PO DAILYPRN PRN PRN Reason: Sinus Symptoms Magnesium Hydroxide (Milk Of Magnesium) 30 ml PO DAILYPRN PRN PRN Reason: Constipation Mineral Oil/White Petrolatum (Eucerin Cream) 0 gm TOP BIDPRN PRN PRN Reason: Dry Skin Ondansetron HCl (Zofran) 4 mg IVP Q6H PRN PRN Reason: Nausea/Vomiting Ondansetron HCl (Zofran Odt) 4 mg PO Q6H PRN PRN Reason: Nausea/Vomiting Phenol (Chloraseptic [place] 180 Ml Bot) 0 ml PO PRN PRN PRN Reason: Sore Throat Senna (Senokot) 2 tab PO HSPRN PRN PRN Reason: Constipation Sodium Chloride (Flush - Normal Saline) 10 ml IVF Q12HR [facility] Last Admin: 01/04/18 08:25 Dose: 10 ml Sodium Chloride (Flush - Normal Saline) 10 ml IVF PRN PRN PRN Reason: Saline Flush Sodium Chloride ([place] Nasal [place] 0.65%) 0 ml EA NARE QIDPRN PRN PRN Reason: Nasal Congestion Zolpidem Tartrate (Ambien) 5 mg PO HSPRN PRN PRN Reason: Insomnia
--- NOTE | 2018-01-04 10:08 | DIS ---
DATE OF ADMISSION: 01/03/2018 DATE OF DISCHARGE: 01/04/2018 PRIMARY CARE PHYSICIAN: Ronda Hall M.D. DISCHARGE DISPOSITION: Home. PRIMARY DISCHARGE DIAGNOSIS: Symptomatic anemia, status post transfusion. SECONDARY DISCHARGE DIAGNOSES: Chronic iron deficiency anemia, chronic headache, erosive esophagitis , hypertension, lumbar spinal stenosis. PRIMARY PROCEDURE/OPERATION: None. RADIOLOGICAL INVESTIGATION: None. SIGNIFICANT LABORATORY DATA: WBC 5.2, hemoglobin 6.9 on admission and on discharge 7.5, platelet 284 , MCV 73.9. Sodium 137, potassium 4.2, BUN 30, creatinine 0.93, calcium 8.3, ferritin 3.20, AST 29, ALT 21, alkaline phosphatase 75, albumin 3.6, iron 10. DISCHARGE MEDICATIONS: Ferrous sulfate 325 mg p.o. b.i.d., Protonix 40 mg p.o. daily, lisinopril 5 m g p.o. b.i.d. CONTRAINDICATIONS: None. CODE STATUS: FULL CODE. 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 Harrell is consulted for GI workup. TEST RESULTS PENDING ON DISCHARGE: None. ALLERGIES: No known drug allergy. DISCHARGE PLAN: Post hospital, patient will follow up with primary care physician in 1 week. HOSPITAL COURSE: A 67-year-old male who went to primary care physician's office and he was complaini ng of dyspnea on exertion, fatigue, tiredness and that is why primary care physician did routine bloo d tests and he was found with very low hemoglobin and that is why he was directed to emergency room. Overnight, patient was given 1 unit of blood transfusion. We also transfused 200 mg of iron. This patient is noncompliant with medication. He was not taking any iron supplement as well as blood pres sure medication and he was not following PCPS and he was also taking Excedrin for his intermittent he adache. During this admission, we educated the patient about compliance with treatment. We sent all new medi cation to his pharmacy. He will follow up with primary care physician. We are also consulting GI fo r further evaluation. Procedure will be decided by GI if needed. Otherwise, this patient is medical ly stable for discharge later on today. The patient is seen and examined at bedside today. Please see my progress note from today for furthe r detail.
[2018-01-04 13:21] LABS: Hemoglobin 7.8 g/dL (14.0-18.0)
[2018-01-04 15:32] VITALS: BP 173/83; TEMP 97.6
--- NOTE | 2018-01-04 19:50 | CON ---
DATE OF CONSULTATION: 01/04/2018 REQUESTING PHYSICIAN: Dr. Interiano. REASON FOR CONSULTATION: Iron deficiency anemia. HISTORY OF PRESENT ILLNESS: Mr. Yobani Quach is a 67-year-old man who was admitted to the hospital yesterday after routine lab work showed a significant iron deficiency anemia with hemoglobin of 6.9. Mr. Quach has a long history of iron deficiency anemia. He underwent workup for this in 2014 with EGD and colonoscopy with my partner, Dr. Bass. EGD at that time showed severe erosive esophagitis and a single small ulcer at the rectosigmoid junction. This was thought to be due to nonsteroidal a nti-inflammatory drug use. The patient was noncompliant with medications after this and underwent a repeat EGD in 2015 and this demonstrated again grade C esophagitis and what appeared to be short segm ent Jackson's esophagus with a hiatal hernia. The patient was again noncompliant with medications. He was most recently evaluated for this in 07/[address] Trammell. EGD showed severe distal esop hagitis with large ulcer, which was benign on biopsies as well as hemorrhoids on colonoscopy, but oth erwise normal colonoscopy. Since that time, the patient has continued to take Excedrin most every da y. He says he takes Nexium, but more on an as needed basis for perceived to heartburn or dyspepsia a nd he ran out of this long time ago. He never really remembers to take his iron supplementation as h ad previously been directed. Throughout all of this, he has no significant overt bleeding. He says he had some vomiting a couple of weeks ago with perhaps some scant hematemesis, but nothing since the n. There is no melena or hematochezia. Upon presentation, he has been hemodynamically stable. Hemo globin came up to 7.8 with 1 unit RBC transfusion. He got some IV iron as well. He is hungry and wo uld like to be discharged today if possible. REVIEW OF SYSTEMS: Full review of systems including constitutional, head, eyes, ears, nose, throat, GI, , cardiovascular, respiratory, musculoskeletal, and neurologic systems is negative except as no gillian in the HPI. PAST MEDICAL HISTORY: Erosive esophagitis, hiatal hernia, hemorrhoids, bipolar disorder, GERD, back surgery, hip surgery, scoliosis. ALLERGIES: No known drug allergies. OUTPATIENT MEDICATIONS: Excedrin p.r.n., Nexium occasionally, iron tablet occasionally. SOCIAL HISTORY: No smoking, alcohol, or drug use. FAMILY HISTORY: Noncontributory. PHYSICAL EXAMINATION: VITAL SIGNS: Temperature 97.6, pulse 60, blood pressure 173/83, 96% oxygen saturation on room air. GENERAL: Frail, chronically ill appearing man sitting up in bed comfortably, in no distress. EYES: No scleral icterus. Extraocular movements intact. ENT: Mucous membranes moist, no oral lesions. LYMPH: No submandibular or supraclavicular lymphadenopathy. THYROID: Nontender to palpation. SKIN: Pale, no jaundice, no rash visible or palpable. HEART: Regular rate and rhythm. LUNGS: Clear to auscultation bilaterally. ABDOMEN: Soft and nontender to palpation. EXTREMITIES: No peripheral edema. VESSELS: Radial pulses 2+ bilaterally. NEUROLOGICAL: Cranial nerves II through XII intact bilaterally. No focal deficits. LABORATORY STUDIES: Hemoglobin up to 7.8, WBC 5.2, platelets 284. Iron 10, ferritin only 3.2, BUN 3 0, creatinine 0.93, total bilirubin 0.2, alkaline phosphatase 75, AST 29, ALT 21, albumin 3.6. ASSESSMENT AND PLAN: 1. Iron deficiency anemia. 2. Severe erosive esophagitis. 3. Medication noncompliance. I do not think any repeat endoscopic investigation is necessary at thi s point. He underwent panendoscopy again most recently in 07/2017 with findings of persistent erosiv e esophagitis. He has continued to be noncompliant with medications. I stressed with him the need t o be compliant with PPI therapy as well as iron therapy. He will need followup of his CBC with his [facility] care provider. He also needs to limit the NSAID use. We will try to have him follow up in [facility] GI clinic with Dr. Bass in the next couple of weeks as well. Otherwise, from a GI standpoint, he could be discharged home.
== END 2018-01-04 19:15 | disposition home or self-care (01) ==
LOC: ERS 18:01 → 2SW 21:56
PROVIDERS: ADMIT Internal Medicine; ATTEND Internal Medicine
DX: D50.9 Iron deficiency anemia, unspecified (principal); R51 Headache; I10 Essential (primary) hypertension; M48.061 Spinal stenosis, lumbar region without neurogenic claudication; M41.9 Scoliosis, unspecified; F31.9 Bipolar disorder, unspecified; K21.0 Gastro-esophageal reflux disease with esophagitis; Z91.14 Patient's other noncompliance with medication regimen; Z98.890 Other specified postprocedural states
CPT/HCPCS: 36430; 80053; 82274; 82728; 83540; 85014 ×3; 85018 ×3; 85025; 86850; 86900; 86901; 86920; 96365; 96366; 96375; 99285; G0378; P9016; 36415; 96374; C9113; J1756; J2916; J7050

== ENCOUNTER 2018-06-05 12:46 | Emergency (ER) | payer MEDICARE ==
[2018-06-05 13:43] LABS: #Eosinphils 0.1 thou/uL (0.0-0.7); #Lymphocytes 0.8 thou/uL (1.20-3.40); #Monocytes 0.5 thou/uL (0.11-0.59); #Neutrophils 3.4 thou/uL (1.40-6.50); %Basophils 0.5 % (0.0-1.0); %Eosinophils 1.3 % (0.0-10.0); %Lymphocytes 16.1 % (21.0-51.0); %Monocytes 10.3 % (0.0-10.0); %Neutrophils 71.8 % (42.0-75.0); Hemoglobin 8.5 g/dL (14.0-18.0); Mean Corpuscular HGB CONC 31.2 g/dL (32.0-36.0); Mean Corpuscular Volume 73.8 fL (78.0-98.0); Mean Platelet Volume 6.6 fL (7.4-10.4); Platelet Count 240 thou/uL (130-400); RBC Distribution Width 16.2 % (11.5-14.5); Red Blood Cell (RBC) Count 3.68 mill/uL (4.70-6.10); White Blood Cell (WBC) Count 4.7 thou/uL (4.8-10.8)
[2018-06-05 13:58] LABS: CKMB 6.1 ng/mL (0-6.6); Troponin I Less than 0.010 ng/mL (< 0.028)
[2018-06-05 13:59] LABS: ALT (SGPT) 9 U/L (8-55); AST (SGOT) 18 U/L (5-34); Albumin 3.8 g/dL (3.4-4.8); Alkaline Phosphatase 88 U/L (40-150); Anion Gap 11 mmol/L (10-20); BUN (Urea Nitrogen) 15 mg/dL (8.4-25.7); Bilirubin, Total 0.3 mg/dL (0.2-1.2); CK (CPK) 209 U/L (30-200); Calc. Creatinine Clearance 0 mL/min (70-130); Calcium 8.7 mg/dL (7.8-10.44); Carbon Dioxide 25 mmol/L (23-31); Chloride 105 mmol/L (98-107); Estimated GFR-MDRD Greater than 90; Globulin 2.7 g/dL (2.4-3.5); Glucose 100 mg/dL (80-115); Potassium 3.9 mmol/L (3.5-5.1); Protein, Total 6.5 g/dL (5.8-8.1); Sodium 137 mmol/L (136-145)
[2018-06-05 14:06] LABS: Anisocytosis SLIGHT = 6-15 cells (100X) (0-5/hpf); Band 9 % (5-11); Eosinophils 3 % (0-10); Lymphocytes 17 % (21-51); MDiff Complete? YES; Microcytosis SLIGHT = 6-15 cells (100X) (0-5/hpf); Monocytes 4 % (0-10); Neutrophil 67 % (42-75); Nucleated RBC 1 % (0); Ovalocytes SLIGHT = 2-5 cells (100X) (0-1/hpf); PLT Morphology Comment Appears Adequate; Polychromasia MODERATE = 3-4 cells (100X) (0-2/hpf)
[2018-06-05 14:50] LABS: Bilirubin Negative (Negative); Blood, Urine Negative (Negative); Clarity CLEAR (Clear); Glucose, Urine (Dipstick) Negative (Negative); Leukocyte Negative (Negative); Nitrite Negative (Negative); Protein, Urine (Dipstick) Negative (Neg-Trace); Specific Gravity, Urine 1.019 (1.002-1.036); Urobilinogen 0.2 mg/dL (0.2-1.0)
--- NOTE | 2018-06-10 11:40 | EKG ---
Test Reason : Blood Pressure : / mmHG Vent. Rate : 076 BPM Atrial Rate : 076 BPM P-R Int : 136 ms QRS Dur : 092 ms QT Int : 422 ms P-R-T Axes : 028 008 050 degrees QTc Int : 474 ms Normal sinus rhythm Normal ECG Confirmed by SAMUEL SAUCEDA DO ([id number]), business editor SELENE SANDS ([id number]) on 06/10/2018 11:39:46 AM Referred By: Confirmed By:SAMUEL SAUCEDA DO
== END 2018-06-05 15:41 | disposition home or self-care (01) ==
LOC: ERS 12:46
DX: D64.9 Anemia, unspecified (principal)
CPT/HCPCS: 36415; 80053; 81003; 82274; 82550; 82553; 84484; 85025; 93005

== ENCOUNTER 2018-06-30 13:20 | Observation (INO) | payer MEDICAID, MEDICARE ==
[~2018-06-30 13:20] MED LIST: ISOVUE-370 76%-LOCM 1 ML ONE
[2018-06-30] MEDS ORDERED: Ondansetron HCl/PF 4 MG/2 ML Vial ONE ×2 (13:49→15:41)
[2018-06-30] MEDS ORDERED: Ketorolac Tromethamine 30 MG/ML VIAL ONE (13:49)
[2018-06-30 14:24] LABS: #Lymphocytes 0.7 thou/uL (1.20-3.40); #Monocytes 0.4 thou/uL (0.11-0.59); #Neutrophils 3.2 thou/uL (1.40-6.50); %Basophils 0.6 % (0.0-1.0); %Eosinophils 0.9 % (0.0-10.0); %Lymphocytes 16.5 % (21.0-51.0); %Monocytes 9.6 % (0.0-10.0); %Neutrophils 72.5 % (42.0-75.0); Hemoglobin 9.1 g/dL (14.0-18.0); Mean Corpuscular Hemoglobin 22.5 pg (27.0-31.0); Mean Corpuscular Volume 75.1 fL (78.0-98.0); Mean Platelet Volume 7.3 fL (7.4-10.4); Platelet Count 287 thou/uL (130-400); RBC Distribution Width 17.2 % (11.5-14.5); Red Blood Cell (RBC) Count 4.03 mill/uL (4.70-6.10); White Blood Cell (WBC) Count 4.4 thou/uL (4.8-10.8)
[2018-06-30 14:36] LABS: Anisocytosis SLIGHT = 6-15 cells (100X) (0-5/hpf); Hypochromia SLIGHT = 6-15 cells (100X) (0-5/hpf); MDiff Complete? YES; Microcytosis SLIGHT = 6-15 cells (100X) (0-5/hpf); Ovalocytes SLIGHT = 2-5 cells (100X) (0-1/hpf); PLT Morphology Comment Appears Adequate; Polychromasia SLIGHT = 2-3 cells (100X) (0-2/hpf)
[2018-06-30 14:49] LABS: Troponin I Less than 0.010 ng/mL (< 0.028)
[2018-06-30 14:51] LABS: ALT (SGPT) 13 U/L (8-55); AST (SGOT) 18 U/L (5-34); Albumin 3.7 g/dL (3.4-4.8); Alkaline Phosphatase 89 U/L (40-150); Anion Gap 13 mmol/L (10-20); BUN (Urea Nitrogen) 14 mg/dL (8.4-25.7); Bilirubin, Total 0.3 mg/dL (0.2-1.2); CK (CPK) 147 U/L (30-200); Calc. Creatinine Clearance 0 mL/min (70-130); Calcium 8.6 mg/dL (7.8-10.44); Carbon Dioxide 26 mmol/L (23-31); Chloride 103 mmol/L (98-107); Estimated GFR-MDRD Greater than 90; Globulin 2.9 g/dL (2.4-3.5); Glucose 86 mg/dL (80-115); Lipase 47 U/L (8-78); Potassium 3.7 mmol/L (3.5-5.1); Protein, Total 6.6 g/dL (5.8-8.1); Sodium 138 mmol/L (136-145)
[2018-06-30 15:08] LABS: Bilirubin Negative (Negative); Blood, Urine Negative (Negative); Clarity CLEAR (Clear); Glucose, Urine (Dipstick) Negative (Negative); Leukocyte Negative (Negative); Nitrite Negative (Negative); Protein, Urine (Dipstick) Negative (Neg-Trace); Specific Gravity, Urine 1.007 (1.002-1.036); Urobilinogen 0.2 mg/dL (0.2-1.0); pH, Urine 7.5 (5.0-9.0)
--- NOTE | 2018-06-30 15:18 | ULT ---
ULTRASOUND GALLBLADDER RIGHT UPPER QUADRANT: Date: 06/30/18 HISTORY: Abdominal pain. COMPARISON: None. FINDINGS: Real-time Gifford scale and color evaluation of the right upper quadrant of the abdomen was performed. P ancreas not well seen. The liver measures 14.0 cm in length. Mild increased hepatic echotexture. There is sludge within the gallbladder, which is mildly distended. Common bile duct is normal. Gallbl adder wall thickness is upper limits of normal. Sonographic Barron's sign is negative. Right kidney measures 9.7 x 4.7 x 5.1 cm. No significant pericholecystic fluid. IMPRESSION: Gallbladder sludge without definite evidence of acute cholecystitis. POS: [facility]
[2018-06-30] MEDS ORDERED: Morphine 4 MG/ML VIAL ONE (15:41)
--- NOTE | 2018-06-30 16:36 | CT ---
CT ABDOMEN AND PELVIS WITH CONTRAST 06/30/18 HISTORY: Abdominal pain. Nausea and vomiting. COMPARISON: Ultrasound same day. FINDINGS: Numerous old right sided rib fractures. Lung bases otherwise clear. No pericardial effusion. Large sl iding hiatal hernia. Numerous calcified granulomas of the spleen. Gallbladder is normal. Liver is nor mal. Portal vein is patent. Normal bilateral symmetric renal enhancement. The iliac vessels are markedly tortuous. No aneurysmal dilatation of the aorta. There are erosive changes of the L4 vertebral bodies similar to the comparison examination. Prior cr inectomy changes lower lumbar spine. Compression deformities noted of the L5 vertebra, also similar and has the appearance of old discitis /osteomyelitis. Likely a prior bilateral inguinal hernia repair. No dilated loops of large or small bowel. Mild submucosal edema of the proximal small bowel loops. Right hip arthroplasty is in place. IMPRESSION: 1. Mild submucosal edema and thickening of the proximal small bowel loops suggestive of enteriti s. 2. Normal gallbladder. 3. Compression deformities of the L4 and L5 vertebral bodies with erosions, has the appearance o f chronic osteomyelitis/discitis and is unchanged from 2017 versus old injury. POS: [facility]
[2018-06-30] MEDS ORDERED: Pantoprazole 40 MG VIAL ONE (17:02)
[2018-06-30] MEDS ORDERED: cloNIDine 0.1 MG TAB PO PRN (17:54)
[2018-06-30] MEDS ORDERED: Calcium Carbonate 500 MG ChewTAB PO PRN ×2 (17:54)
[2018-06-30] MEDS ORDERED: Bisacodyl 5 MG TAB PO PRN ×2 (17:54)
[2018-06-30] MEDS ORDERED: Benzonatate 100 MG CAP PO PRN (17:54)
[2018-06-30] MEDS ORDERED: hydrALAZINE 20 MG/ML VIAL SLOW IVP PRN (17:54)
[2018-06-30] MEDS ORDERED: Senokot 8.6 MG TAB PO PRN ×2 (17:54)
[2018-06-30] MEDS ORDERED: Mag-Al 1200 mg/1200 mg/30 ML UDCUP PO PRN ×2 (17:54)
[2018-06-30] MEDS ORDERED: Nitroglycerin 0.4 MG TAB (25 Tab Bottle) SL PRN (17:54)
[2018-06-30] MEDS ORDERED: traMADol HCl 50 MG TAB PO PRN (17:54)
[2018-06-30] MEDS ORDERED: Diabetic Tussin 200 MG/10 ML UDCUP PO PRN (17:54)
[2018-06-30] MEDS ORDERED: Ondansetron HCl/PF 4 MG/2 ML Vial IVP PRN (17:54)
--- NOTE | 2018-06-30 18:38 | HP ---
PRIMARY CARE PHYSICIAN: [facility]. CHIEF COMPLAINT: Persistent vomiting and abdominal pain and blood in the vomitus and dark stools. HISTORY OF PRESENTING ILLNESS: Mr. Quach is a pleasant 67-year-old male with past medical history of erosive esophagitis, Jackson's esophagus with history of NSAID abuse in the past and GI bleed seco ndary to that requiring transfusion, who presented to the emergency room with the above-mentioned com plaint. History is mainly obtained by the patient himself and electronic medical records have been r [id number]. He was last admitted to our facility earlier this year in December with significant drop in hi s hemoglobin requiring transfusion. He used to see [facility]. [facility], but he has not been able to do that for a l jania time now. He has been more or less homeless for a long time now. Mr. Quach reports that about a week ago, he moved into his trailer from his friend's house where he was living for a long time. He has no utilities at the trailer. He has a generator, but no gas for the generator and has no means of transportation. He has some canned foods that he has been eating, but other than that he does not have access to any groceries. He fell immediately after moving ther e with significant abdominal pain located in the epigastric region and started to throw up. At this time, he denies any use of BC powder, Excedrin or any of the pain medication he used to use. He also reports that he has seen some blood in his vomiting and also some dark stools. He reports otherwise no illnesses. He denies any fever or chills. Denies any chest pain, shortness of breath. He presented to the emergency room with this and he was found to be hemodynamically stable. His bloo d pressure was 133/86 with a pulse of 64, saturating 98% on room air. His lab work was rather stable with hemoglobin of 9.1 with baseline hemoglobin anywhere from 7-8-9. His serum chemistries were rat her unimpressive and electrolytes were all within normal limits. He underwent an ultrasound of his a bdomen which showed some gallbladder sludge without cholecystitis. He then underwent a CT scan of th e abdomen and pelvis with contrast which showed some mild submucosal edema in the proximal small justin l loops suggesting of enteritis. Otherwise, unremarkable exam. He was given pain medications in the ER and Protonix as per my suggestion and is now being admitted for further evaluation and care. PAST MEDICAL HISTORY: 1. Erosive esophagitis, history of esophageal ulcer. 2. History of Jackson's esophagus. 3. History of gastrointestinal bleed. 4. Iron deficiency anemia. PAST SURGICAL HISTORY: Back surgery, hip surgery, hemorrhoid surgery and severe scoliosis. SOCIAL HISTORY: Patient denies any drug, tobacco or alcohol abuse. Currently, he is living in a [facility] for the last week which has no utilities. Other than that, he is rather homeless. He has no re al family so to say off. FAMILY HISTORY: Mother lived up to 100 years old. Father in his 80s from old age. CURRENT MEDICATIONS: None. The patient is not taking anything. ALLERGIES: No known medication allergies. REVIEW OF SYSTEMS: A 12-point review of systems was done. It is negative except for those mentioned in the history and physical. LABORATORY DATA AND IMAGING DATA: CBC shows WBCs of 4.4, hemoglobin 9.1, which is largely microcytic and hypochromic. Platelet count normal at 27. Serum chemistries unremarkable. Cardiac enzymes and lipase normal. Urinalysis normal. CT scan of the abdomen and pelvis shows mild submucosal edema in small bowel consistent with enteritis. Primary gallbladder ultrasound is negative for any gallstone s or CBD stones. No biliary ductal dilatation. PHYSICAL EXAMINATION: VITAL SIGNS: Upon presentation, blood pressure 133/86, pulse of 64, respirations 16, 98% on room air , temperature 98.1. GENERAL: He appears pale, cachectic and severely malnourished, but in no acute distress. He is awak e, alert and oriented x3. HEENT: Mucous membrane is moist. No oropharyngeal exudate or erythema. Head is normocephalic, atra umatic. Pupils are equal, reactive to light and accommodation. Extraocular movement intact. NECK: Supple without any lymphadenopathy, JVD or bruit. CHEST: Clear to auscultation without any wheezing, rales or rhonchi. CARDIOVASCULAR: Rhythm is regular without any murmur, rubs or gallops. ABDOMEN: Scaphoid and tender to palpation in the epigastric region without any rebound, guarding or rigidity. EXTREMITIES: Free of any cyanosis, clubbing, or edema. MUSCULOSKELETAL: Severe scoliosis of the back is noticed. SKIN: Free of any rashes or bruises. I feel warm and dry to touch. NEUROLOGIC: Examination is nonfocal. PSYCHIATRIC: Normal affect. IMPRESSION AND PLAN: 1. Intractable nausea and vomiting. Cause is unknown, but I do suspect that he has some food poison ing from eating canned food without proper refrigeration. He does have enteritis on the CT scan, but no other abnormality. I do suspect gastritis or esophagitis. He will be treated symptomatically wi supportive care including normal saline. We will add proton pump inhibitor IV b.i.d. for now give n his significant history of GI bleed, erosive esophagitis and Jackson's esophagus. His biopsy done on 07/2017 is reviewed, which showed active erosive esophagitis and no Jackson's specialized columnar epithelium, no dysplasia or malignancy. He had a normal colonoscopy in 07/2017 as well. At this ti la, we will request consultation with his own meteorology instructor, Dr. Bass in the morning and keep him on a liquid diet and n.p.o. after midnight, especially colon because of his history of blood in h is vomiting and possibly melena. We will continue to trend hemoglobin and hematocrit for now. 2. Intractable nausea and vomiting. We will use p.r.n. antiemetics and provide IV fluids for resusc itation. Monitor electrolytes. Currently, he had no electrolyte abnormalities to suggest significan t loss from vomiting for a week 3. Severe malnutrition. The patient will be started on normal saline, multivitamin, multi-mineral a s well as ferrous sulfate. 4. Iron deficiency anemia. The patient is currently denying any use of NSAIDs. His hemoglobin is a t its baseline. We will start him on ferrous supplement on a daily basis. 5. Severe deconditioning. The patient is rather deconditioned and disabled due to his severe scolio sis. We will have OT, PT evaluate him and we will request placement in a shelter facility fo r now. 6. History of erosive esophagitis, PPI as above. He will be discharged on a proton pump inhibitor w henever he is ready as well. 7. CODE STATUS: DO NOT RESUSCITATE or INTUBATE discussed with the patient in detail. 8. Add deep venous thrombosis and gastrointestinal prophylaxis. We will avoid any pharmacological d eep venous thrombosis prophylaxis and use sequential compression devices for now. DISPOSITION: Mr. Quach is currently being admitted under observation status for intractable nausea and vomiting. Further management will depend upon his clinical course.
[2018-06-30] MEDS: Pantoprazole 40 MG VIAL IVP SCH (19:38)
[2018-06-30] MEDS: Sodium Chloride 0.9% 1,000 ML IV SCH (19:39)
[2018-07-01] MEDS: Acetaminophen 325 MG TAB PO PRN (02:36)
[2018-07-01 05:31] LABS: #Eosinphils 0.1 thou/uL (0.0-0.7); #Lymphocytes 0.8 thou/uL (1.20-3.40); #Monocytes 0.5 thou/uL (0.11-0.59); #Neutrophils 2.6 thou/uL (1.40-6.50); %Basophils 0.1 % (0.0-1.0); %Eosinophils 1.4 % (0.0-10.0); %Lymphocytes 19.5 % (21.0-51.0); %Monocytes 11.7 % (0.0-10.0); %Neutrophils 67.3 % (42.0-75.0); Hemoglobin 7.7 g/dL (14.0-18.0); Mean Corpuscular HGB CONC 29.5 g/dL (32.0-36.0); Mean Corpuscular Hemoglobin 22.3 pg (27.0-31.0); Mean Corpuscular Volume 75.7 fL (78.0-98.0); Mean Platelet Volume 7.3 fL (7.4-10.4); Platelet Count 238 thou/uL (130-400); RBC Distribution Width 17.3 % (11.5-14.5); Red Blood Cell (RBC) Count 3.43 mill/uL (4.70-6.10); White Blood Cell (WBC) Count 3.9 thou/uL (4.8-10.8)
[2018-07-01 05:41] LABS: Anion Gap 9 mmol/L (10-20); BUN (Urea Nitrogen) 11 mg/dL (8.4-25.7); Calc. Creatinine Clearance 82 mL/min (70-130); Calcium 7.9 mg/dL (7.8-10.44); Carbon Dioxide 26 mmol/L (23-31); Chloride 108 mmol/L (98-107); Estimated GFR-MDRD Greater than 90; Glucose 89 mg/dL (80-115); Potassium 3.7 mmol/L (3.5-5.1); Sodium 139 mmol/L (136-145)
[2018-07-01] MEDS: Multivitamin W/ Minerals 1 TAB PO SCH (07:55)
[2018-07-01] MEDS: Pantoprazole 40 MG VIAL IVP SCH ×2 (08:02→20:14)
[2018-07-01] MEDS: Sodium Chloride 0.9% 1,000 ML IV SCH ×2 (08:10→21:52)
[2018-07-01] MEDS ORDERED: Amlodipine 10 MG TAB PO SCH (09:30)
--- NOTE | 2018-07-01 12:06 | PDOC.PN ---
- Subjective Encounter Start Date: 07/01/18 Encounter Start Time: 12:04 Subjective: feels much better. no more abd pain/N/V - Objective Resuscitation Status: Resuscitation Status DNR:Do Not Resuscitate MAR Reviewed: Yes Vital Signs & Weight: Vital Signs (12 hours) Temp Pulse Resp BP Pulse Ox 07/01/18 11:02 98.1 F 55 L 16 134/83 96 07/01/18 08:00 98.3 F 68 20 07/01/18 07:40 98.3 F 68 20 157/95 H 97 07/01/18 02:38 56 L 20 145/86 H 98 Weight Weight 132 lb I&O: 06/30/18 07/01/18 07/02/18 06:59 06:59 06:59 Intake Total 1692 Output Total 1300 Balance 392 Result Diagrams: 07/01/18 04:46 07/01/18 04:46 Additional Labs: Microbiology 06/30/18 14:35 Urine voided Urine Culture - Preliminary NO GROWTH AT 24 HOURS Phys Exam - Physical Examination Constitutional: NAD pale HEENT: PERRLA, moist MMs, sclera anicteric, oral pharynx no lesions Neck: no nodes, no JVD, supple, full ROM Respiratory: no wheezing, no rales, no rhonchi, clear to auscultation bilateral Cardiovascular: RRR, no significant murmur Gastrointestinal: soft, non-tender, no distention, positive bowel sounds Musculoskeletal: no edema, pulses present Neurological: non-focal, normal sensation, moves all 4 limbs Psychiatric: normal affect, A&O x 3 Skin: no rash Dx/Plan (1) Acute on chronic blood loss anemia Code(s): D60.0 - CHRONIC ACQUIRED PURE RED CELL APLASIA Status: Acute (2) Intractable nausea and vomiting Code(s): R11.2 - NAUSEA WITH VOMITING, UNSPECIFIED Status: Acute (3) GI bleed Code(s): K92.2 - GASTROINTESTINAL HEMORRHAGE, UNSPECIFIED Status: Suspected Qualifiers: GI bleed type/associated pathology: unspecified gastrointestinal hemorrhage type Qualified Code(s): K92.2 - Gastrointestinal hemorrhage, unspecified (4) Severe malnutrition Code(s): E43 - UNSPECIFIED SEVERE PROTEIN-CALORIE MALNUTRITION Status: Chronic (5) Scoliosis Status: Chronic (6) Esophagitis, erosive Code(s): K22.10 - ULCER OF ESOPHAGUS WITHOUT BLEEDING Status: Chronic (7) Hypertension Code(s): I10 - ESSENTIAL (PRIMARY) HYPERTENSION Status: Chronic (8) Iron deficiency anemia Code(s): D50.9 - IRON DEFICIENCY ANEMIA, UNSPECIFIED Status: Chronic Qualifiers: - Plan out of bed/ambulate, DVT proph w/SCDs H/H dropped overnight w/o overt bleed.suspect slow UGIB Vs dilutional.reche -: Cont IV PPI.Gi recs requested. NPO if EGD required today -: on IVF -: Start low dose norvasc for high BP and titrate. -: needs placement. * . Review of Systems - Review of Systems Constitutional: weakness. negative: fever, chills, sweats, malaise, other ENT: negative: Ear Pain, Ear Discharge, Nose Pain, Nose Discharge, Nose Congestion, Mouth Pain, Mouth Swelling, Throat Pain, Throat Swelling, Other Respiratory: negative: Cough, Dry, Shortness of Breath, Hemoptysis, SOB with Excertion, Pleuritic Pain, Sputum, Wheezing Cardiovascular: negative: chest pain, palpitations, orthopnea, paroxysmal nocturnal dyspnea, edema, light headedness, other Gastrointestinal: negative: Nausea, Vomiting, Abdominal Pain, Diarrhea, Constipation, Melena, Hematochezia, Other Genitourinary: negative: Dysuria, Frequency, Incontinence, Hematuria, Retention , Other Neurological: negative: Weakness, Numbness, Incoordination, Change in Speech, Confusion, Seizures, Other - Medications/Allergies Allergies/Adverse Reactions: Allergies Allergy/AdvReac Type Severity Reaction Status Date / Time No Known Drug Allergies Allergy Verified 06/30/18 20:13 Medications: Current Medications Acetaminophen (Tylenol) 650 mg PO Q4H PRN PRN Reason: Headache/Fever or Pain Last Admin: 07/01/18 02:36 Dose: 650 mg Al Hydroxide/Mg Hydroxide (Maalox) 30 ml PO Q6H PRN PRN Reason: Heartburn or Indigestion Al Hydroxide/Mg Hydroxide (Maalox) 15 ml PO Q4H PRN PRN Reason: Heartburn or Indigestion Amlodipine Besylate (Norvasc) 5 mg PO DAILY [facility]IVIANA Benzonatate (Tessalon) 100 mg PO Q4H PRN PRN Reason: Cough Bisacodyl (Dulcolax) 10 mg PO DAILYPRN PRN PRN Reason: Constipation Calcium Carbonate (Tums) 1,000 mg PO Q4H PRN PRN Reason: Heartburn or Indigestion Clonidine (Catapres) 0.1 mg PO Q4H PRN PRN Reason: Systolic BP > 160 Ferrous Sulfate (Ferrous Sulfulte) 300 mg PO QAM-WM [facility] Last Admin: 07/01/18 07:54 Dose: Not Given Guaifenesin (Robitussin Sf) 200 mg PO Q4H PRN PRN Reason: Cough Hydralazine HCl (Apresoline) 10 mg SLOW IVP Q4H PRN PRN Reason: Systolic BP > 170 Sodium Chloride (Normal Saline 0.9%) 1,000 mls @ 75 mls/hr IV .[id number] [facility] Last Admin: 07/01/18 08:10 Dose: 1,000 mls Iron/Minerals/Multivitamins (Theragran M) 1 tab PO DAILY [facility] Last Admin: 07/01/18 07:55 Dose: Not Given Nitroglycerin (Nitrostat) 0.4 mg SL Q5MIN PRN PRN Reason: Chest Pain Ondansetron HCl (Zofran) 4 mg IVP Q6H PRN PRN Reason: Nausea/Vomiting Pantoprazole Sodium (Protonix) 40 mg IVP Q12HR [facility] Last Admin: 07/01/18 08:02 Dose: 40 mg Senna (Senokot) 2 tab PO HSPRN PRN PRN Reason: Constipation Sodium Chloride (Flush - Normal Saline) 10 ml IVF Q12HR [facility] Last Admin: 07/01/18 08:02 Dose: 10 ml Sodium Chloride (Flush - Normal Saline) 10 ml IVF PRN PRN PRN Reason: Saline Flush Tramadol HCl (Ultram) 50 mg PO Q4H PRN PRN Reason: Moderate Pain (4-6)
[2018-07-01 12:30] LABS: Hemoglobin 8.1 g/dL (14.0-18.0)
--- NOTE | 2018-07-01 18:53 | CON ---
DATE OF CONSULTATION: 07/01/2018 REASON FOR CONSULTATION: Hematemesis, possible melena. CONSULTING PHYSICIAN: Dr. Meera Gallagher. HISTORY OF PRESENT ILLNESS: The patient is a 67-year-old male with past medical history of gastroeso phageal reflux disease with severe erosive esophagitis and ulceration noted on most recent upper endo scopy, Jackson's esophagus, hiatal hernia, bipolar disorder and chronic anemia, presenting with compl aints of hematemesis and darker color stools. He states that he has been intermittently having incre ased nausea and vomiting with the appearance of small volume hematemesis going on for quite some time . However, more recently he noted over the last week, he has been having increased nausea and vomiti ng, having approximately 2-3 discrete episodes of vomiting per day that would occur primarily with th e ingestion of food. In regards to this, he said he often "gets acid in my might stomach, I throw it up, then I can eat." However, upon further questioning, it is unclear if he had these vomiting epis odes prior to ingestion of food or after and whether or not he would induce vomiting in order to feel well enough to eat. In any case, he had been prescribed PPIs in the past for severe erosive esophag itis for very similar symptom presentations in the past and he was also advised to discontinue all NS AIDs; however, he has only been taking the Nexium as needed and stopped taking this completely approx imately 1 week ago and he has also been taking 400 mg of ibuprofen nightly for general aches and pain s. Associated symptoms also include regurgitation, substernal pyrosis and acid taste in his mouth. He does not endorse any particular time of day where he would experience the nausea and vomiting and/ or hematemesis. During the same time period over the last week, he does endorse darker colored stool s, but characterize them as dark brown stools, having approximately 1-2 semi-solid bowel movements pe r day with no difficulty with defecation. Currently, he denies any fevers, chills, abdominal pain, o dynophagia, dysphagia, weight loss or hematochezia. Of note, his most recent upper endoscopy was in 07/2017, which showed a large ulceration in the dista l esophagus with ulcers extending all the way up to 20 cm. There was also some mild luminal narrowin g, but the scope was advanced into the stomach without difficulty. REVIEW OF SYSTEMS: A 10-category review of systems was obtained with all responses negative except f or the pertinent positives as listed in the HPI. PAST MEDICAL HISTORY: As per HPI. PAST SURGICAL HISTORY: Back surgery, hip surgery and hemorrhoid surgery. FAMILY HISTORY: Denies any GI malignancies. SOCIAL HISTORY: Denies any tobacco, alcohol or illicit drug use. OUTPATIENT MEDICATIONS: Reviewed, most especially taking approximately 400 mg of ibuprofen nightly. ALLERGIES: No known drug allergies. PHYSICAL EXAMINATION: VITAL SIGNS: Temperature 98.3, pulse 66, blood pressure 134/83, respiratory rate 14, satting 96% on room air. GENERAL: Patient is lying in bed in no acute distress, alert and oriented x4. NECK: Supple. No JVD noted. CARDIOVASCULAR: Regular rate and rhythm with no discernible murmurs, gallops or rubs. RESPIRATORY: Clear to auscultation bilaterally with no discernible wheezes or rales. ABDOMEN: Normoactive bowel sounds, soft, nondistended, mild tenderness to palpation in the midepigas tric and right upper quadrant regions. EXTREMITIES: No cyanosis, clubbing or edema. LABORATORY DATA: CBC with a white blood cell count of 3.9, hemoglobin 7.7, hematocrit 25.9, platelet s 238. Chemistry with a sodium of 139, potassium 3.7, chloride 108, CO2 of 26, BUN 11, creatinine 0. 73, glucose 89, AST 18, ALT 13, albumin 3.7, alkaline phosphatase 89, total bilirubin 0.3. IMAGING DATA: CT of the abdomen and pelvis performed on 06/30/2018 showed mild submucosal edema and thickening of the proximal small bowel loops suggestive of enteritis. There were no abnormalities se en within the gallbladder or biliary tree as well as erosive changes of the L4 vertebral bodies and c ompression deformities of the L5 vertebra which are stable in appearance. ASSESSMENT AND PLAN: The patient is a 67-year-old male with past medical history of gastroesophageal reflux disease with severe erosive esophagitis and ulceration on most recent EGD, Jackson's esophagu s, bipolar disorder, hiatal hernia and chronic anemia presenting with continued anemia and hematemesi s. Upper GI bleeding: The patient is presenting with a longstanding history of chronic nausea and vomit ing that had gotten worse over the last week, characterized as having approximately 2-3 discrete epis odes of vomiting per day, but it was also unclear if the patient was inducing vomiting in order to fe el better to eat. With these discrete episodes of emesis, he does endorse the appearance of blood ti nged emesis, but without the appearance of grossly bloody vomiting. He does have a history of severe esophagitis in the past with the most recent EGD in 07/2017 showing severe esophagitis as well as a distal esophageal ulceration which could be potentially contributing to the current problem. However , he does also carry a concurrent diagnosis of Jackson's esophagus which in and of itself does carry a slight malignancy risk, so gastrointestinal neoplasm cannot be ruled out at this time. Current dif ferential could include esophagitis secondary to gastroesophageal reflux disease, arteriovenous malfo rmation, Dieulafoy lesion, gastritis, Lilliana-Baca tear, and/or gastrointestinal neoplasm. RECOMMENDATIONS: 1. Given his stable H and H when compared to baseline and lack of hemodynamic instability, patient c an be placed on a diet today, but be placed on n.p.o. at midnight in preparation for procedure tomorr ow. We will plan for EGD tomorrow morning for evaluation of hematemesis. 2. We would continue to trend H and H and transfuse as necessary to maintain an H and H of 7/21. 3. Continue to monitor for signs of active gastrointestinal bleeding. 4. Agree with antiemetic control to prevent further episodes of nausea and vomiting and possible Mal craig-Baca tear. We will continue to follow. Please call with any questions.
[2018-07-01] MEDS: Tetrahydrozoline 0.05% OPTH 15 ML BOT EA EYE PRN (21:51)
[2018-07-02] MEDS: Acetaminophen 325 MG TAB PO PRN (00:08)
[2018-07-02] MEDS ORDERED: Promethazine HCl 25 MG/ML VIAL SLOW IVP PRN (10:28)
[2018-07-02] MEDS ORDERED: Promethazine HCl 25 MG/ML VIAL IM PRN (10:28)
[2018-07-02] MEDS ORDERED: Ondansetron HCl/PF 4 MG/2 ML Vial IVP PRN (10:28)
--- NOTE | 2018-07-02 11:17 | PDOC.PN ---
- Subjective Encounter Start Date: 07/02/18 Encounter Start Time: 11:15 Subjective: s/p EGD today.feels Ok -: no abd pain/n/V - Objective Resuscitation Status: Resuscitation Status DNR:Do Not Resuscitate MAR Reviewed: Yes Vital Signs & Weight: Vital Signs (12 hours) Temp Pulse Resp BP Pulse Ox 07/02/18 11:01 98.2 F 67 16 129/66 96 07/02/18 08:05 98.1 F 65 16 07/02/18 07:24 98.1 F 65 16 140/78 96 07/02/18 04:02 98.5 F 62 16 135/84 97 Weight Admit Weight 132 lb 3.2 oz Weight 129 lb 6.4 oz I&O: 07/01/18 07/02/18 07/03/18 06:59 06:59 06:59 Intake Total 1692 2258 Output Total 1300 3500 500 Balance 392 -1242 -500 Result Diagrams: 07/02/18 04:29 07/01/18 04:46 Additional Labs: labs reviewed Phys Exam - Physical Examination Constitutional: NAD HEENT: PERRLA, moist MMs, sclera anicteric, oral pharynx no lesions Neck: no nodes, no JVD, supple, full ROM Respiratory: no wheezing, no rales, no rhonchi, clear to auscultation bilateral Cardiovascular: RRR, no significant murmur, no rub Gastrointestinal: soft, non-tender, no distention, positive bowel sounds Musculoskeletal: no edema, pulses present Neurological: non-focal, normal sensation, moves all 4 limbs Psychiatric: normal affect, A&O x 3 Skin: no rash Dx/Plan (1) Acute on chronic blood loss anemia Code(s): D60.0 - CHRONIC ACQUIRED PURE RED CELL APLASIA Status: Acute Comment: H/H stable.s/p EGD (2) GI bleed Code(s): K92.2 - GASTROINTESTINAL HEMORRHAGE, UNSPECIFIED Status: Suspected Qualifiers: GI bleed type/associated pathology: unspecified gastrointestinal hemorrhage type Qualified Code(s): K92.2 - Gastrointestinal hemorrhage, unspecified Comment: roselyn samamalia due to severe esophagitis (3) Intractable nausea and vomiting Code(s): R11.2 - NAUSEA WITH VOMITING, UNSPECIFIED Status: Resolved (4) Severe malnutrition Code(s): E43 - UNSPECIFIED SEVERE PROTEIN-CALORIE MALNUTRITION Status: Chronic (5) Scoliosis Status: Chronic (6) Esophagitis, erosive Code(s): K22.10 - ULCER OF ESOPHAGUS WITHOUT BLEEDING Status: Chronic Comment: on PPI (7) Hypertension Code(s): I10 - ESSENTIAL (PRIMARY) HYPERTENSION Status: Chronic (8) Iron deficiency anemia Code(s): D50.9 - IRON DEFICIENCY ANEMIA, UNSPECIFIED Status: Chronic Qualifiers: - Plan PT/OT, DVT proph w/SCDs cont PPI.educated about the need for take meds. -: DC dispo needed. -: repeat H/h in am. -: advance diet.DC IVF * . Review of Systems - Review of Systems Constitutional: weakness. negative: fever, chills, sweats, malaise, other Respiratory: negative: Cough, Dry, Shortness of Breath, Hemoptysis, SOB with Excertion, Pleuritic Pain, Sputum, Wheezing Cardiovascular: negative: chest pain, palpitations, orthopnea, paroxysmal nocturnal dyspnea, edema, light headedness, other Gastrointestinal: negative: Nausea, Vomiting, Abdominal Pain, Diarrhea, Constipation, Melena, Hematochezia, Other Genitourinary: negative: Dysuria, Frequency, Incontinence, Hematuria, Retention , Other Musculoskeletal: negative: Neck Pain, Shoulder Pain, Arm Pain, Back Pain, Hand Pain, Leg Pain, Foot Pain, Other Skin: negative: Rash, Lesions, Guillermo, Bruising, Other Neurological: negative: Weakness, Numbness, Incoordination, Change in Speech, Confusion, Seizures, Other - Medications/Allergies Allergies/Adverse Reactions: Allergies Allergy/AdvReac Type Severity Reaction Status Date / Time No Known Drug Allergies Allergy Verified 06/30/18 20:13 Medications: Current Medications Acetaminophen (Tylenol) 650 mg PO Q4H PRN PRN Reason: Headache/Fever or Pain Last Admin: 07/02/18 00:08 Dose: 650 mg Al Hydroxide/Mg Hydroxide (Maalox) 30 ml PO Q6H PRN PRN Reason: Heartburn or Indigestion Al Hydroxide/Mg Hydroxide (Maalox) 15 ml PO Q4H PRN PRN Reason: Heartburn or Indigestion Amlodipine Besylate (Norvasc) 5 mg PO DAILY [facility] Benzonatate (Tessalon) 100 mg PO Q4H PRN PRN Reason: Cough Bisacodyl (Dulcolax) 10 mg PO DAILYPRN PRN PRN Reason: Constipation Calcium Carbonate (Tums) 1,000 mg PO Q4H PRN PRN Reason: Heartburn or Indigestion Clonidine (Catapres) 0.1 mg PO Q4H PRN PRN Reason: Systolic BP > 160 Ferrous Sulfate (Ferrous Sulfulte) 300 mg PO QAM-[facility] Last Admin: 07/01/18 07:54 Dose: Not Given Guaifenesin (Robitussin Sf) 200 mg PO Q4H PRN PRN Reason: Cough Hydralazine HCl (Apresoline) 10 mg SLOW IVP Q4H PRN PRN Reason: Systolic BP > 170 Iron/Minerals/Multivitamins (Theragran M) 1 tab PO DAILY [facility] Last Admin: 07/01/18 07:55 Dose: Not Given Nitroglycerin (Nitrostat) 0.4 mg SL Q5MIN PRN PRN Reason: Chest Pain Ondansetron HCl (Zofran) 4 mg IVP Q6H PRN PRN Reason: Nausea/Vomiting Ondansetron HCl (Pacu-Zofran) 4 mg IVP ONE PRN PRN Reason: Nausea/Vomiting Stop: 07/02/18 13:28 Pantoprazole Sodium (Protonix) 40 mg IVP Q12HR [facility] Last Admin: 07/01/18 20:14 Dose: 40 mg Promethazine HCl (Pacu-Phenergan) 6.25 mg SLOW IVP ONE PRN PRN Reason: Nausea/Vomiting Stop: 07/02/18 13:28 Promethazine HCl (Pacu-Phenergan) 6.25 mg IM ONE PRN PRN Reason: Nausea/Vomiting Stop: 07/02/18 13:28 Senna (Senokot) 2 tab PO HSPRN PRN PRN Reason: Constipation Sodium Chloride (Flush - Normal Saline) 10 ml IVF Q12HR [facility] Last Admin: 07/01/18 20:14 Dose: 10 ml Sodium Chloride (Flush - Normal Saline) 10 ml IVF PRN PRN PRN Reason: Saline Flush Tetrahydrozoline HCl (Visine Ac 0.05% Opth) 0 drop EA EYE Q4H PRN PRN Reason: Irritation/ Dry Eyes Last Admin: 07/01/18 21:51 Dose: 1 drop Tramadol HCl (Ultram) 50 mg PO Q4H PRN PRN Reason: Moderate Pain (4-6)
[2018-07-02] MEDS: Pantoprazole 40 MG VIAL IVP SCH ×2 (11:21→21:35)
[2018-07-02] MEDS: Multivitamin W/ Minerals 1 TAB PO SCH (11:21)
[2018-07-02] MEDS: Tetrahydrozoline 0.05% OPTH 15 ML BOT EA EYE PRN ×2 (11:25→16:17)
--- NOTE | 2018-07-02 13:44 | OP ---
DATE OF PROCEDURE: 07/02/2018 PROCEDURE: Esophagogastroduodenoscopy (diagnostic). INDICATION FOR PROCEDURE: Hematemesis. DESCRIPTION OF PROCEDURE: After the risks and benefits of the procedure were explained to the patien t including risk of bleeding, infection, perforation, reaction to anesthesia, aspiration and/or pain, informed consent was obtained. The patient was then taken to the endoscopy suite where deep sedatio n was administered via propofol and anesthesia support. Once adequate sedation was achieved, the sta ndard gastroscope was introduced into the mouth with intubation of the esophagus, stomach and the pro ximal small intestine with the findings listed below. The patient tolerated the procedure well with no immediate perioperative complications. FINDINGS: Esophagus: Normal appearing mucosa was seen in the proximal and mid esophagus; however, in the dista l esophagus severe erosive esophagitis was seen extending from the GE junction at 32 cm to approximat belem 25 cm with multiple erosions and large superficial clean based ulcerations within the esophagus. There was no evidence of active/recent bleeding in this particular area with no intervention taken o n the esophagitis. There was no evidence of mass lesions, but there was also the presence of a few t ongues of salmon-colored mucosa extending proximally from the GE junction, but given the severity of his reflux esophagitis, it was difficult to discern whether or not this was due to his esophagitis ve rsus Jackson's mucosa. The diaphragmatic pinch was seen at 37 cm while the GE junction was well seen at 32 cm denoting a 5 cm hiatal hernia. STOMACH: Normal appearing mucosa was seen in the gastric cardia, fundus, body, greater curvature, an trum and incisura. There was no evidence of erosions, ulcerations, mass lesions or active/recent ble eding. A large hiatal hernia was seen on gastric retroflexion. Duodenum: Normal appearing mucosa was seen in both the duodenal bulb and second portion of the duode num. There was no evidence of erosions, ulcerations, mass lesions or active/recent bleeding. IMPRESSION: 1. LA grade D erosive esophagitis, most likely mediated by acid reflux. 2. A 5 cm hiatal hernia (most likely contributing to impression #1). RECOMMENDATIONS: 1. We would continue to trend H&H and transfuse as necessary to maintain an H&H of 7/21. 2. Continue to monitor for signs of active gastrointestinal bleeding. 3. We would continue pantoprazole 40 mg b.i.d. for severe erosive esophagitis. 4. We would maintain strict antireflux precautions (for example, maintaining an upright posture for 2 hours after meals, avoiding trigger foods, avoiding smoking/drinking, avoiding eating meals before bedtime, etc). We will sign off at this time. The patient can be discharged with follow up in the GI clinic within the next 2-3 weeks while on PPI. Please call with any additional questions.
[2018-07-02] MEDS ORDERED: PROPOFOL 200 MG/20 ML VIAL ONE (15:16)
[2018-07-02] MEDS ORDERED: PHENYLEPHRINE-NS 100 MCG/ML 10 ML SYRINGE ONE (15:16)
[2018-07-02] MEDS ORDERED: ePHEDrine/0.9% NaCl/PF SYRINGE 50 mg/10 ml ONE (15:16)
[2018-07-02] MEDS: Amlodipine 5 MG TAB PO SCH (16:17)
[2018-07-03] MEDS: Acetaminophen 325 MG TAB PO PRN (04:51)
[2018-07-03] MEDS: Tetrahydrozoline 0.05% OPTH 15 ML BOT EA EYE PRN ×2 (04:54→21:03)
[2018-07-03 05:22] LABS: Hemoglobin 7.8 g/dL (14.0-18.0)
[2018-07-03] MEDS ORDERED: Amlodipine 10 MG TAB PO SCH (09:30)
[2018-07-03] MEDS: Multivitamin W/ Minerals 1 TAB PO SCH (09:35)
[2018-07-03] MEDS: Pantoprazole 40 MG VIAL IVP SCH (09:35)
[2018-07-03] MEDS: Amlodipine 5 MG TAB PO SCH (09:35)
--- NOTE | 2018-07-03 16:27 | PDOC.PN ---
- Subjective Encounter Start Date: 07/03/18 Encounter Start Time: 16:25 Subjective: feels better. no new complaints -: no N/v/abd pain - Objective Resuscitation Status: Resuscitation Status DNR:Do Not Resuscitate MAR Reviewed: Yes Vital Signs & Weight: Vital Signs (12 hours) Temp Pulse Pulse Pulse Resp BP BP 07/03/18 15:31 99.2 F 78 12 07/03/18 12:07 98.2 F 66 20 07/03/18 09:37 63 07/03/18 09:36 61 65 141/83 H 146/78 H 07/03/18 09:35 97.5 F L 63 20 07/03/18 07:40 97.5 F L 63 20 BP BP Pulse Ox 07/03/18 15:31 137/76 96 07/03/18 12:07 146/79 H 97 07/03/18 09:37 07/03/18 09:36 07/03/18 09:35 07/03/18 07:40 146/73 H 97 Weight Admit Weight 132 lb 3.2 oz Weight 130 lb 8.218 oz I&O: 07/02/18 07/03/18 07/04/18 06:59 06:59 06:59 Intake Total 2258 2786 10 Output Total 3500 1700 Balance -1242 1086 10 Result Diagrams: 07/03/18 04:32 07/01/18 04:46 Phys Exam - Physical Examination Constitutional: NAD HEENT: PERRLA, moist MMs, sclera anicteric, oral pharynx no lesions Neck: no nodes, no JVD, supple, full ROM Respiratory: no wheezing, no rales, no rhonchi, clear to auscultation bilateral Cardiovascular: RRR, no significant murmur, no rub Gastrointestinal: soft, non-tender, no distention, positive bowel sounds Musculoskeletal: no edema, pulses present Neurological: non-focal, normal sensation, moves all 4 limbs Psychiatric: normal affect, A&O x 3 Skin: no rash Dx/Plan (1) Acute on chronic blood loss anemia Code(s): D60.0 - CHRONIC ACQUIRED PURE RED CELL APLASIA Status: Acute Comment: H/H stable.s/p EGD (2) GI bleed Code(s): K92.2 - GASTROINTESTINAL HEMORRHAGE, UNSPECIFIED Status: Suspected Qualifiers: GI bleed type/associated pathology: unspecified gastrointestinal hemorrhage type Qualified Code(s): K92.2 - Gastrointestinal hemorrhage, unspecified Comment: roselyn small, due to severe esophagitis (3) Intractable nausea and vomiting Code(s): R11.2 - NAUSEA WITH VOMITING, UNSPECIFIED Status: Resolved (4) Severe malnutrition Code(s): E43 - UNSPECIFIED SEVERE PROTEIN-CALORIE MALNUTRITION Status: Chronic (5) Scoliosis Status: Chronic (6) Esophagitis, erosive Code(s): K22.10 - ULCER OF ESOPHAGUS WITHOUT BLEEDING Status: Chronic Comment: on PPI (7) Hypertension Code(s): I10 - ESSENTIAL (PRIMARY) HYPERTENSION Status: Chronic (8) Iron deficiency anemia Code(s): D50.9 - IRON DEFICIENCY ANEMIA, UNSPECIFIED Status: Chronic Qualifiers: (9) Physical deconditioning Code(s): R53.81 - OTHER MALAISE Status: Chronic - Plan PT/OT, out of bed/ambulate, DVT proph w/SCDs Cont PPI.change to Po -: pt c/o urinary frequency.roselyn BPH.start Flomax -: H/H stable. no active bleed -: Dc when placement finished * . Review of Systems - Review of Systems Constitutional: negative: fever, chills, sweats, weakness, malaise, other ENT: negative: Ear Pain, Ear Discharge, Nose Pain, Nose Discharge, Nose Congestion, Mouth Pain, Mouth Swelling, Throat Pain, Throat Swelling, Other Respiratory: negative: Cough, Dry, Shortness of Breath, Hemoptysis, SOB with Excertion, Pleuritic Pain, Sputum, Wheezing Cardiovascular: negative: chest pain, palpitations, orthopnea, paroxysmal nocturnal dyspnea, edema, light headedness, other Gastrointestinal: negative: Nausea, Vomiting, Abdominal Pain, Diarrhea, Constipation, Melena, Hematochezia, Other Genitourinary: negative: Dysuria, Frequency, Incontinence, Hematuria, Retention , Other Musculoskeletal: negative: Neck Pain, Shoulder Pain, Arm Pain, Back Pain, Hand Pain, Leg Pain, Foot Pain, Other Neurological: negative: Weakness, Numbness, Incoordination, Change in Speech, Confusion, Seizures, Other - Medications/Allergies Allergies/Adverse Reactions: Allergies Allergy/AdvReac Type Severity Reaction Status Date / Time No Known Drug Allergies Allergy Verified 06/30/18 20:13 Medications: Current Medications Acetaminophen (Tylenol) 650 mg PO Q4H PRN PRN Reason: Headache/Fever or Pain Last Admin: 07/03/18 04:51 Dose: 650 mg Al Hydroxide/Mg Hydroxide (Maalox) 30 ml PO Q6H PRN PRN Reason: Heartburn or Indigestion Al Hydroxide/Mg Hydroxide (Maalox) 15 ml PO Q4H PRN PRN Reason: Heartburn or Indigestion Amlodipine Besylate (Norvasc) 5 mg PO DAILY [facility] Last Admin: 07/03/18 09:35 Dose: 5 mg Amlodipine Besylate (Norvasc) 10 mg PO DAILY [facility] Benzonatate (Tessalon) 100 mg PO Q4H PRN PRN Reason: Cough Bisacodyl (Dulcolax) 10 mg PO DAILYPRN PRN PRN Reason: Constipation Calcium Carbonate (Tums) 1,000 mg PO Q4H PRN PRN Reason: Heartburn or Indigestion Clonidine (Catapres) 0.1 mg PO Q4H PRN PRN Reason: Systolic BP > 160 Ferrous Sulfate (Ferrous Sulfulte) 300 mg PO QAM-[facility] Last Admin: 07/03/18 09:35 Dose: 300 mg Guaifenesin (Robitussin Sf) 200 mg PO Q4H PRN PRN Reason: Cough Hydralazine HCl (Apresoline) 10 mg SLOW IVP Q4H PRN PRN Reason: Systolic BP > 170 Iron/Minerals/Multivitamins (Theragran M) 1 tab PO DAILY [facility] Last Admin: 07/03/18 09:35 Dose: 1 tab Nitroglycerin (Nitrostat) 0.4 mg SL Q5MIN PRN PRN Reason: Chest Pain Ondansetron HCl (Zofran) 4 mg IVP Q6H PRN PRN Reason: Nausea/Vomiting Pantoprazole Sodium (Protonix) 40 mg PO BID [facility] Senna (Senokot) 2 tab PO HSPRN PRN PRN Reason: Constipation Sodium Chloride (Flush - Normal Saline) 10 ml IVF Q12HR [facility] Last Admin: 07/03/18 09:35 Dose: 10 ml Sodium Chloride (Flush - Normal Saline) 10 ml IVF PRN PRN PRN Reason: Saline Flush Last Admin: 07/02/18 11:22 Dose: 10 ml Tamsulosin HCl (Flomax) 0.4 mg PO HS [facility] Tetrahydrozoline HCl (Visine Ac 0.05% Opth) 0 drop EA EYE Q4H PRN PRN Reason: Irritation/ Dry Eyes Last Admin: 07/03/18 04:54 Dose: 1 drop Tramadol HCl (Ultram) 50 mg PO Q4H PRN PRN Reason: Moderate Pain (4-6)
[2018-07-03] MEDS: Tamsulosin HCl 0.4 MG CAP PO SCH (21:03)
[2018-07-04] MEDS: Acetaminophen 325 MG TAB PO PRN ×2 (00:01→15:55)
[2018-07-04 05:10] LABS: Hemoglobin 8.2 g/dL (14.0-18.0)
[2018-07-04] MEDS: Multivitamin W/ Minerals 1 TAB PO SCH (09:10)
[2018-07-04] MEDS: Amlodipine 10 MG TAB PO SCH (09:10)
[2018-07-04] MEDS: Amlodipine 5 MG TAB PO SCH (13:33)
[2018-07-04 14:07] VITALS: BMI 23.1
--- NOTE | 2018-07-04 14:08 | PDOC.PN ---
- Subjective Encounter Start Date: 07/04/18 Encounter Start Time: 14:06 Subjective: homeless - Objective Resuscitation Status: Resuscitation Status DNR:Do Not Resuscitate MAR Reviewed: Yes Vital Signs & Weight: Vital Signs (12 hours) Temp Pulse Resp BP BP Pulse Ox 07/04/18 13:33 68 07/04/18 12:07 97.4 F L 68 16 98/56 L 95 07/04/18 09:10 97.4 F L 68 16 109/66 07/04/18 07:35 98 F 65 15 109/66 99 07/04/18 03:40 98.2 F 66 16 132/82 95 Weight Admit Weight 132 lb 3.2 oz Weight 130 lb 8 oz I&O: 07/03/18 07/04/18 07/05/18 06:59 06:59 06:59 Intake Total 2786 730 720 Output Total 1700 1050 Balance 1086 730 -330 Result Diagrams: 07/04/18 04:24 07/01/18 04:46 Phys Exam - Physical Examination pale MM Neck: no JVD Respiratory: clear to auscultation bilateral Cardiovascular: RRR, no significant murmur Gastrointestinal: soft, non-tender, positive bowel sounds Musculoskeletal: no edema Dx/Plan (1) Acute on chronic blood loss anemia Code(s): D60.0 - CHRONIC ACQUIRED PURE RED CELL APLASIA Status: Acute Comment: H/H stable.s/p EGD (2) GI bleed Code(s): K92.2 - GASTROINTESTINAL HEMORRHAGE, UNSPECIFIED Status: Suspected Qualifiers: GI bleed type/associated pathology: unspecified gastrointestinal hemorrhage type Qualified Code(s): K92.2 - Gastrointestinal hemorrhage, unspecified Comment: angelicacalvin small, due to severe esophagitis (3) Intractable nausea and vomiting Code(s): R11.2 - NAUSEA WITH VOMITING, UNSPECIFIED Status: Resolved (4) Esophagitis, erosive Code(s): K22.10 - ULCER OF ESOPHAGUS WITHOUT BLEEDING Status: Chronic Comment: on PPI (5) Hypertension Code(s): I10 - ESSENTIAL (PRIMARY) HYPERTENSION Status: Chronic (6) Iron deficiency anemia Code(s): D50.9 - IRON DEFICIENCY ANEMIA, UNSPECIFIED Status: Chronic Qualifiers: - Plan cont PPI, load with IV iron -: disposition * .
[2018-07-04] MEDS ORDERED: Sodium Ferric Gluconate 250 MG, Admixture Fee 1 EACH in Sodium Chloride 0.9% 250 ML 250 ML IVPB SCH (14:15)
[2018-07-04] MEDS: Tamsulosin HCl 0.4 MG CAP PO SCH (20:55)
[2018-07-05 04:36] LABS: Hemoglobin 8.4 g/dL (14.0-18.0)
[2018-07-05] MEDS: Amlodipine 10 MG TAB PO SCH (08:31)
[2018-07-05] MEDS: Multivitamin W/ Minerals 1 TAB PO SCH (08:32)
--- NOTE | 2018-07-05 08:47 | DIS ---
TRANSFER OF CARE NOTE DATE OF ADMISSION: 06/30/2018 DATE OF DISCHARGE: 07/05/2018 DISPOSITION: Discharged home. PRIMARY CARE PROVIDER: Dr. Ronda Hall FINAL DIAGNOSES: 1. Erosive esophagitis. 2. Severe iron deficiency anemia. 3. Gastrointestinal bleeding. 4. Nausea, and vomiting. 5. Hypertension. 6. Chronic headaches. DISCHARGE MEDICATIONS: Flomax 0.4 mg at bedtime, Protonix 40 mg twice a day, Norvasc 10 mg a day. ALLERGIES: No known drug allergies. PENDING AT THE TIME OF DISCHARGE: Nothing. CODE STATUS: FULL. DIET: Regular. HOSPITAL COURSE: The patient admitted to [facility] for persistent nause a, vomiting, abdominal pain, blood in vomitus, dark stools. He had a history of Jackson's esophagus. At the time of admission comp metabolic profile was normal. Hemoglobin 7.7 with marked microcytic microchromic indices. White count 3.9, platelet count 238. Abdominal pelvis CT reveals suggestion o f enteritis. Dr. Arian Schafer was consulted. The patient underwent esophagogastroduodenoscopy, had grade D erosive esophagitis, probable reflux. The patient was treated with IV Protonix initially tra nsitioned to Protonix p.o. twice a day. His hemoglobin remained stable at 8+ or minus, did not requi re transfusion. I have reviewed old records and he had severe iron deficiency in his previous admiss ion. He has been discharged on iron and had not taken it. On 07/04/2018 he was loaded with IV iron. He is currently stable. Blood pressure is stable. Physical exam is stable. No nausea, vomiting, abdominal pain. He is being discharged with home health to follow up with Dr. Ronda Hall in 1 week . He will need a CBC at that time. Prescriptions for his medicines have been written.
[2018-07-05] MEDS: Tamsulosin HCl 0.4 MG CAP PO SCH (20:50)
[2018-07-05] MEDS: Tetrahydrozoline 0.05% OPTH 15 ML BOT EA EYE PRN (20:53)
[2018-07-06 04:36] LABS: Hemoglobin 8.3 g/dL (14.0-18.0)
[2018-07-06 08:04] VITALS: BP 114/78; TEMP 97.7
[2018-07-06] MEDS: Multivitamin W/ Minerals 1 TAB PO SCH (08:52)
[2018-07-06] MEDS: Amlodipine 10 MG TAB PO SCH (08:52)
--- NOTE | 2018-07-17 15:13 | EKG ---
Test Reason : Blood Pressure : / mmHG Vent. Rate : 061 BPM Atrial Rate : 061 BPM P-R Int : 146 ms QRS Dur : 090 ms QT Int : 446 ms P-R-T Axes : 035 025 068 degrees QTc Int : 448 ms Poor data quality, interpretation may be adversely affected Normal sinus rhythm Voltage criteria for left ventricular hypertrophy Nonspecific ST abnormality Reconfirmed by CALISTA KABA DO ([id number]), managing editor RICHARD JORGE ([id number] on 07/17/2018 3:13:41 PM Referred By: Confirmed By:CALISTA KABA DO
== END 2018-07-06 10:28 ==
LOC: ERS 13:20 → 2SW 18:53
PROVIDERS: ADMIT Internal Medicine; ATTEND Internal Medicine
PROC: 0DJ08ZZ Inspection of Upper Intestinal Tract, Via Natural or Artificial Opening Endoscopic (ICD-10-PCS; principal; 2018-07-02)
DX: K92.0 Hematemesis (principal); K22.70 Barrett's esophagus without dysplasia; K44.9 Diaphragmatic hernia without obstruction or gangrene; M41.9 Scoliosis, unspecified; D50.0 Iron deficiency anemia secondary to blood loss (chronic); F31.9 Bipolar disorder, unspecified; R53.81 Other malaise; E43 Unspecified severe protein-calorie malnutrition; Z68.22 Body mass index [BMI] 22.0-22.9, adult; Z66 Do not resuscitate
CPT/HCPCS: 43235; 74177; 76705; 80048; 80053; 81003; 82550; 82553; 83690; 84484; 85014 ×6; 85018 ×6; 85025 ×2; 87086; 93005; 96361 ×4; 96365; 96366; 96375; 96376 ×5; 97116; 97139 ×9; 99285; G0378 ×3; G8978 ×2; G8979 ×2; G8980 ×2; G8987; G8988; G8989; 36415; 96374; A4216; C9113; J1885; J2270; J2405; J2704; J2916; J7050

== ENCOUNTER 2018-09-04 12:25 | Outpatient (CLI) | payer MEDICARE ==
[2018-09-04 13:22] LABS: Estimated GFR-MDRD - POC Greater than 90
--- NOTE | 2018-09-04 14:31 | RAD ---
FOUR VIEWS OF THE LUMBOSACRAL SPINE WITH BENDING: Comparison: 08-24-12 History: Low back pain for years. FINDINGS: Lateral views of the lumbosacral spine were performed in neutral, flexion, and extension. There has b een an interval compression fracture of the L5 vertebral body with approximately 10% height loss. The re is wedging of the L3 and L4 vertebral body, unchanged. Vertebral bodies demonstrate normal alignme nt without subluxation. Alignment is unchanged with flexion and extension. Posterior facet arthrosis is seen in the lower lumbosacral spine. IMPRESSION: Interval compression fracture of L5 of uncertain age. POS: [facility]
--- NOTE | 2018-09-04 14:34 | RAD ---
THREE VIEWS CERVICAL SPINE: History: Chronic neck pain that radiates down both shoulders for years. FINDINGS: Lateral views of the cervical spine were performed in neutral, flexion, and extension. There is wedge compression deformity of the C4 and C5 vertebral bodies. Intervertebral discs are narrowed in the mi d cervical spine. Vertebral bodies demonstrate normal alignment without subluxation. Alignment is unc hanged with flexion and extension. IMPRESSION: Degenerative changes of the midcervical spine without acute osseous abnormality. POS: [facility]
--- NOTE | 2018-09-04 17:17 | MRI ---
CERVICAL SPINE MRI WITHOUT CONTRAST: HISTORY: Chronic neck pain, radiating down both shoulders for many years. COMPARISON: None. TECHNIQUE: An MRI of the cervical spine is performed without intravenous Gadolinium administration. Multisequen tial, multiplanar imaging is performed. FINDINGS: Appropriate T1 marrow signal intensity of the cervical vertebrae. There appears to be a remote moder ate compression fracture at C5 and a mild compression fracture at C6. No significant STIR hyperinten sity to suggest acute fracture. There is 2.3 mm of anterolisthesis of C3 upon C4, 5.8 mm of anterolisthesis of C4 upon C5, 3.5 mm of retrolisthesis of C5 upon C6, and 4.4 mm of anterolisthesis of C7 upon T1. The visualized brain parenchyma, the cervicomedullary junction, the cervical cord, and the upper thor acic cord have normal size and signal intensity. C2-C3: No significant disk osteophyte complex. No significant central canal stenosis. Moderate rig ht and mild to moderate left foraminal narrowing. C3-C4: A broad-based disk osteophyte complex abuts the thecal sac. No significant central canal natasha nosis. Moderate to severe right and mild to moderate left foraminal narrowing. There is asymmetric right facet hypertrophy. C4-C5: A broad-based disk osteophyte complex abuts the thecal sac. The ventral subarachnoid space i s effaced. Mild central canal stenosis. No significant mass effect upon the cervical cord. Degener ative change in the bilateral uncovertebral joints results in at least mild to moderate bilateral for aminal narrowing. C5-C6: There is mass effect upon the thecal sac, predominantly due to retrolisthesis and, to a lesse r extent, disk material and osteophyte formation. The ventral subarachnoid space is still maintained . Mild central canal stenosis. Degenerative changes in the bilateral vertebral joints results in mo derate to severe right and moderate left foraminal narrowing. C6-C7: Broad-based disk osteophyte complex with a small left paracentral component. Mild central ca nal stenosis. Moderate to severe right and severe left foraminal narrowing. C7-T1: Broad-based disk osteophyte complex abuts the thecal sac. There is posterior element hypertr ophy. Moderate central canal stenosis. Moderate bilateral foraminal narrowing. IMPRESSION: 1. Spondylolisthesis as above. 2. Varying degrees of central canal stenosis and foraminal narrowing, as above. POS: THA
--- NOTE | 2018-09-04 17:48 | MRI ---
MRI LUMBAR SPINE WITH AND WITHOUT CONTRAST: Date: 09/04/18 COMPARISON: 10/08/12. HISTORY: Back pain and muscle weakness for years. Previous back surgery. COMPARISON: 10/08/12. TECHNIQUE: MRI lumbar spine is performed with and without intravenous Gadolinium administration. Multisequential , multiplanar imaging is performed. FINDINGS: Appropriate T1 marrow signal intensity of the L1-L3 vertebral bodies, as well as visualized sacrum. T here is abnormal T1 marrow signal hypointensity involving the L4 and L5 vertebral bodies. On the STIR images, there is evidence of hyperintensity involving the L3-L4 disc space, L4 vertebral body, and t he L5 vertebral body. Note, there is complete collapse of the L4 vertebral body, likely pathologic, s econdary to an infectious process. There is also fluid in the L4-L5 disc space. Symmetric signal intensity of the psoas muscles. Visualized solid organs are unremarkable. T2 hyperin tensity in the left renal cortex is likely a small cyst. Conus medullaris terminates at the inferior aspect of L1. Postcontrast images do not demonstrate any abnormal enhancement within the thecal sac, including the cauda equina and conus medullaris. There is abnormal enhancement involving the paraspinal soft tissues at L3-L4 disc space, L4 vertebral body, and the L4-L5 disc space. T11-T12 and T12-L1: No high grade central canal stenosis. Moderate bilateral foraminal narrowing. L1-L2: Mild loss of disc space height. No high grade central canal stenosis. Moderate right and mild to moderate left foraminal narrowing. L2-L3: Moderate loss of disc space height. Broad based disc bulge, ligamentum flavum thickening, and facet hypertrophy result in mild central canal stenosis. Moderate right and left foraminal narrowing . L3-L4: Broad based disc bulge, ligamentum flavum thickening, and facet hypertrophy result in mild ce ntral canal stenosis. Moderate right and moderate to severe left foraminal narrowing. L4 vertebral body: There is retropulsion of the vertebral body. Posterior element hypertrophy is anastasiia ntified. Moderate central canal stenosis. L4-L5 disc space: There is posterior laminectomy defect. Facet hypertrophy is noted. There is mild c entral canal stenosis. Severe bilateral foraminal narrowing. L5-S1: Laminectomy defect is identified. No high grade central canal stenosis. Moderate to severe ri ght and severe left foraminal narrowing. IMPRESSION: 1. Complete collapse of the L4 vertebral body. There is evidence of enhancement of the L4 vertebral body and L5 vertebral body suggesting components of possible osteomyelitis. There is mild fluid in th e L3-L4 and residual L4-L5 disc spaces. Definite enhancement is not appreciated. Nevertheless, the po ssibility of osteomyelitis cannot be excluded. 2. Possibly enhancing paraspinal soft tissue which may represent reactive change versus phlegmonous change. POS: JULIAN
== END 2018-09-04 12:26 | disposition home or self-care (01) ==
LOC: SCSMRI 12:25
PROVIDERS: ATTEND Neurological Surgery
DX: M47.22 Other spondylosis with radiculopathy, cervical region (principal); S32.059A Unspecified fracture of fifth lumbar vertebra, initial encounter for closed fracture; M43.12 Spondylolisthesis, cervical region; M48.061 Spinal stenosis, lumbar region without neurogenic claudication
CPT/HCPCS: 72050; 72120; 72141; 72158; 82565

== ENCOUNTER 2018-11-15 08:17 | Day surgery (SDC) | payer MEDICARE ==
[2018-11-14 15:41] VITALS: BMI 23.8
[2018-11-15] MEDS ORDERED: PHENYLEPHRINE-NS 100 MCG/ML 10 ML SYRINGE ONE (13:04)
[2018-11-15] MEDS ORDERED: PROPOFOL 200 MG/20 ML VIAL ONE (13:04)
--- NOTE | 2018-11-15 16:18 | OP ---
DATE OF PROCEDURE: 11/15/2018 PREPROCEDURE DIAGNOSES: 1. History of severe reflux esophagitis. 2. History of severe iron-deficiency anemia. 3. Negative gastrin levels. POSTOPERATIVE DIAGNOSES: 1. Improved esophagitis, some small ulceration involving the GE junction, biopsied. No signs of Jackson's. 2. Large hiatal hernia with hiatus at 40 cm and proximal aspect of the gastric fold at 32 cm, this is a sliding-type hernia. 3. Otherwise normal esophagogastroduodenoscopy. 4. Colonoscopy notable for flat 1 cm polyp in ascending colon removed by saline injection and hot snare polypectomy. RECOMMENDATIONS: 1. Await biopsies. 2. Follow up in the office in three weeks, that appointments were made. 3. Continue b.i.d. PPI. 4. Consider surgical referral for repair of hiatal hernia in light of ongoing esophagitis despite b.i.d. PPIs. No signs of hypersecretory state. ANESTHESIA: TIVA. PROCEDURE IN DETAIL: The patient was informed of the risks, benefits, and possible complications of endoscopy including perforation, reaction to medication, and aspiration, and informed consent was obtained. The patient was brought to the Endoscopy Suite, where he was sedated in a gradual fashion. Once he was comfortable, a bite block was placed into his oropharynx. The endoscope was advanced to the esophagus, stomach, and second and third portion of the duodenum and slowly removed. The duodenum and stomach were normal. Retroflexed view of the stomach did reveal a large hiatal hernia with a forward-view showing a hiatus at 40 cm. The proximal aspect of the gastric folds at 32 cm. There was small erosion at the GE junction. There was no tight stricture. Biopsies were obtained of this area. There were no signs of Jackson esophagus or mass or lesions. The scope was removed. The patient was turned to the room and rectal examination was performed, which was normal. The endoscope was advanced through the anal canal through the colon to the cecum, which was identified by the ileocecal valve and appendiceal orifice. The prep was good. The scope was slowly removed. There was a 1 cm polyp in ascending colon, flat, removed by saline assisted hot snare polypectomy. It was retrieved and submitted to Pathology. The remainder of the colon appeared normal. Retroflexed views in the rectum were normal. The scope was removed. The patient tolerated the procedure well. There were no complications. Could not find family members names in the chart to call for results. We will try to do this from the office once his pathology is back. Job ID: [id number]
== END 2018-11-15 13:05 | disposition home or self-care (01) ==
LOC: SDC 08:17
PROVIDERS: ATTEND Internal Medicine Gastroenterology
PROC: 0DB48ZX Excision of Esophagogastric Junction, Via Natural or Artificial Opening Endoscopic, Diagnostic (ICD-10-PCS; principal; 2018-11-15)
PROC: 3E0H8GC Introduction of Other Therapeutic Substance into Lower GI, Via Natural or Artificial Opening Endoscopic (ICD-10-PCS; 2018-11-15)
PROC: 0DBK8ZX Excision of Ascending Colon, Via Natural or Artificial Opening Endoscopic, Diagnostic (ICD-10-PCS; 2018-11-15)
DX: D12.2 Benign neoplasm of ascending colon (principal); K22.10 Ulcer of esophagus without bleeding; K44.9 Diaphragmatic hernia without obstruction or gangrene; D50.9 Iron deficiency anemia, unspecified; F41.9 Anxiety disorder, unspecified; I10 Essential (primary) hypertension; M81.0 Age-related osteoporosis without current pathological fracture; Z79.899 Other long term (current) drug therapy
CPT/HCPCS: 82941; 86316; 88305; 88312; 88313; J2704

== ENCOUNTER 2019-05-10 08:10 | Outpatient (CLI) | payer MEDICARE, MEDICAID ==
--- NOTE | 2019-05-10 11:30 | RAD ---
Double contrast upper GI: 05/10/2019 COMPARISON: None HISTORY: Evaluate diaphragmatic hernia FINDINGS: [employer] imaging demonstrates prominent degenerative change within the imaged thoracic and lum bar spine. The bowel gas pattern is nonobstructed. A double contrast upper GI was performed. Images demonstrate a moderate-sized transient sliding type hiatal hernia, which is most prominent with Valsalva within the patient is in the RPO position. There is a mild fixed area of narrowing of the gastroesophageal junction. The patient ingested a douglas um tablet which traverses this area of stenosis without difficulty. Significant gastroesophageal reflux was seen during this exam, extending from the stomach to the uppe r esophagus at the level of the thoracic inlet. The gastric antrum and duodenal bulb appear unremarkable. The stomach empties normally. Exposure data: 2.5 minutes of fluoroscopic time, 96.5 mg. IMPRESSION: Moderate transient sliding hiatal hernia with significant gastroesophageal reflux. There is a persistent area of narrowing suggesting stricture at the gastroesophageal junction. Recommend direct visualization via endoscopy to exclude an underlying mass lesion. CODE T
== END 2019-05-10 08:11 | disposition home or self-care (01) ==
LOC: RAD 08:10
PROVIDERS: ATTEND Specialist
DX: K44.9 Diaphragmatic hernia without obstruction or gangrene (principal); K21.9 Gastro-esophageal reflux disease without esophagitis
CPT/HCPCS: 74247

== ENCOUNTER 2019-05-21 13:52 | Outpatient (CLI) | payer MEDICARE, MEDICAID ==
[2019-05-21 15:28] LABS: #Lymphocytes 1.3 thou/uL (1.20-3.40); #Monocytes 0.5 thou/uL (0.11-0.59); #Neutrophils 3.1 thou/uL (1.40-6.50); %Basophils 0.8 % (0.0-1.0); %Eosinophils 0.9 % (0.0-10.0); %Lymphocytes 26.7 % (21.0-51.0); %Neutrophils 62.6 % (42.0-75.0); Hemoglobin 15.2 g/dL (14.0-18.0); Mean Corpuscular HGB CONC 33.5 g/dL (32.0-36.0); Mean Corpuscular Hemoglobin 29.8 pg (27.0-31.0); Mean Corpuscular Volume 89.1 fL (78.0-98.0); Mean Platelet Volume 6.9 fL (7.4-10.4); Platelet Count 214 thou/uL (130-400); RBC Distribution Width 12.3 % (11.5-14.5); White Blood Cell (WBC) Count 4.9 thou/uL (4.8-10.8)
[2019-05-21 15:43] LABS: Anion Gap 13 mmol/L (10-20); BUN (Urea Nitrogen) 20 mg/dL (8.4-25.7); Calc. Creatinine Clearance 0 mL/min (70-130); Calcium 9.1 mg/dL (7.8-10.44); Carbon Dioxide 22 mmol/L (23-31); Chloride 105 mmol/L (98-107); Estimated GFR-MDRD Greater than 90; Glucose 92 mg/dL (80-115); Potassium 4.1 mmol/L (3.5-5.1); Sodium 136 mmol/L (136-145)
--- NOTE | 2019-05-23 13:14 | EKG ---
Test Reason : Blood Pressure : / mmHG Vent. Rate : 060 BPM Atrial Rate : 060 BPM P-R Int : 174 ms QRS Dur : 096 ms QT Int : 434 ms P-R-T Axes : 056 039 056 degrees QTc Int : 434 ms Normal sinus rhythm Normal ECG When compared with ECG of 30-JUN-2018 13:53, No significant change was found Confirmed by ANN-MARIE KRAMER (2) on 05/23/2019 1:14:33 PM Referred By: WESTON Confirmed By:ANN-MARIE KRAMER
== END 2019-05-21 13:53 | disposition home or self-care (01) ==
LOC: LABBT 13:52
PROVIDERS: ATTEND Specialist
DX: Z01.818 Encounter for other preprocedural examination (principal); K44.9 Diaphragmatic hernia without obstruction or gangrene; K21.9 Gastro-esophageal reflux disease without esophagitis
CPT/HCPCS: 80048; 85025; 93005; 93010

== ENCOUNTER 2019-05-22 05:48 | Inpatient (IN) | payer MEDICARE, MEDICAID ==
[2019-05-22] MEDS ORDERED: ceFAZolin Sodium (SDC) 2 GM/100 ML BAG ONE (06:50)
[2019-05-22] MEDS ORDERED: Ketorolac Tromethamine 30 MG/ML VIAL ONE (06:51)
[2019-05-22] MEDS ORDERED: Bupivacaine/Epinephrine 0.25% 30 ML VIAL ONE (09:17)
[2019-05-22] MEDS ORDERED: Fentanyl 100 MCG/2 ML VIAL ONE ×2 (09:39→12:09)
[2019-05-22] MEDS ORDERED: Famotidine/PF 20 mg/2ml Vial ONE (09:40)
[2019-05-22] MEDS ORDERED: Ondansetron HCl/PF 4 MG/2 ML Vial IVP PRN (11:37)
[2019-05-22] MEDS ORDERED: Promethazine HCl 25 MG/ML VIAL SLOW IVP PRN (11:37)
[2019-05-22] MEDS ORDERED: Meperidine HCl/PF 25 MG/ML VIAL SLOW IVP PRN (11:37)
[2019-05-22] MEDS ORDERED: Promethazine HCl 25 MG/ML VIAL IM PRN ×2 (11:37→14:53)
[2019-05-22] MEDS ORDERED: Meperidine HCl/PF 25 MG/ML VIAL ONE (12:25)
[2019-05-22] MEDS ORDERED: Ondansetron PF 4 MG/2 ML Vial IVP PRN (14:53)
[2019-05-22] MEDS ORDERED: Morphine 4 MG/ML VIAL SLOW IVP PRN (14:53)
[2019-05-22] MEDS ORDERED: Morphine 2 MG/ML SYRINGE SLOW IVP PRN (14:53)
[2019-05-22] MEDS ORDERED: hydrALAZINE 20 MG/ML VIAL SLOW IVP PRN (14:53)
[2019-05-22] MEDS ORDERED: Dextrose 5% in Water 1,000 ML IV PRN (14:53)
[2019-05-22] MEDS ORDERED: cloNIDine 0.1 MG TAB PO PRN (14:53)
[2019-05-22] MEDS ORDERED: Calcium Carbonate 500 MG ChewTAB PO PRN (14:53)
[2019-05-22] MEDS ORDERED: Mag-Al 1200 mg/1200 mg/30 ML UDCUP PO PRN (14:53)
[2019-05-22] MEDS ORDERED: Dextrose 50% Abboject 50 ML SYRINGE SLOW IVP PRN (14:53)
[2019-05-22] MEDS ORDERED: Esmolol 100 MG/10 ML VIAL ONE (15:54)
[2019-05-22] MEDS ORDERED: Rocuronium Bromide 10 MG/ML (10ML VIAL) ONE (15:54)
[2019-05-22] MEDS ORDERED: Lidocaine 1% PF 5 ML VIAL ONE (15:54)
[2019-05-22] MEDS ORDERED: ePHEDrine 50 MG/ML VIAL ONE (15:54)
[2019-05-22] MEDS ORDERED: PROPOFOL 200 MG/20 ML VIAL ONE (15:54)
[2019-05-22] MEDS ORDERED: Metoclopramide HCl 10 MG/2 ML VIAL ONE (15:54)
[2019-05-22] MEDS ORDERED: PHENYLEPHRINE-NS 100 MCG/ML 10 ML SYRINGE ONE (15:54)
[2019-05-22] MEDS ORDERED: Dexamethasone 20 MG/5 ML VIAL ONE (15:54)
[2019-05-22] MEDS ORDERED: Ondansetron PF 4 MG/2 ML Vial ONE (15:54)
[2019-05-22] MEDS ORDERED: Glycopyrrolate 0.2 MG/ML 5 ML SYRINGE ONE (15:54)
[2019-05-22 16:34] VITALS: BMI 25.6
[2019-05-22] MEDS: Lactated Ringer's 1,000 ML IV SCH ×2 (17:15→22:32)
[2019-05-22] MEDS: Ketorolac Tromethamine 30 MG/ML VIAL IVP SCH ×2 (17:15→22:00)
[2019-05-22] MEDS ORDERED: Enoxaparin Sodium 40 MG/0.4 ML SYRINGE SC SCH (21:00)
[2019-05-23] MEDS: Ketorolac Tromethamine 30 MG/ML VIAL IVP SCH ×2 (04:00→08:17)
[2019-05-23 05:09] LABS: #Monocytes 0.8 thou/uL (0.11-0.59); #Neutrophils 4.8 thou/uL (1.40-6.50); %Basophils 0.1 % (0.0-1.0); %Eosinophils 0.4 % (0.0-10.0); %Lymphocytes 15.3 % (21.0-51.0); %Neutrophils 72.3 % (42.0-75.0); Hemoglobin 12.1 g/dL (14.0-18.0); Mean Corpuscular HGB CONC 34.1 g/dL (32.0-36.0); Mean Corpuscular Hemoglobin 31.2 pg (27.0-31.0); Mean Corpuscular Volume 91.4 fL (78.0-98.0); Mean Platelet Volume 6.8 fL (7.4-10.4); Platelet Count 159 thou/uL (130-400); RBC Distribution Width 12.1 % (11.5-14.5); Red Blood Cell (RBC) Count 3.88 mill/uL (4.70-6.10); White Blood Cell (WBC) Count 6.6 thou/uL (4.8-10.8)
--- NOTE | 2019-05-23 07:14 | PDOC.GSPN ---
Surgery Progress Note: Subj - Subjective Narrative: Mr. Quach is a 68 y/o M who is day 1 S/P Mague fundoplication with hital hernia repair. Overnight he reports no episodes of reflux. 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 He denies nausea, vomiting, diarrhea, constipation and reports that he is urinating and defecating normally. He is ambulating without difficulties. He is tolerating liquids well and has an appetite for soft foods. Surgery Progress Note: Obj - Vital signs Vital signs: Vital Signs - Most Recent Temp Pulse Resp BP Pulse Ox 98.0 F 76 16 145/80 H 93 L 05/23/19 04:06 05/23/19 04:06 05/23/19 04:06 05/23/19 04:06 05/23/19 04:06 - Physical Exam General: no distress Cardiovascular: regular rate and rhythm, no murmur, other (2+ distal pulses and no pedal edema) Respiratory: clear to auscultation, normal respiratory effort Abdomen: soft, non tender, nondistended, positive bowel sounds (NABS) Wound: healing well (Some bruising around incision sites, but incisions are without erythema, warmth, or drainage.) Surgery Progress Note: Results - Labs Result Diagrams: 05/23/19 04:45 Lab results: Laboratory Results - last 24 hr 05/23/19 04:45 WBC 6.6 RBC 3.88 L Hgb 12.1 L Hct 35.5 L MCV 91.4 MCH 31.2 H MCHC 34.1 RDW 12.1 Plt Count 159 MPV 6.8 L Neutrophils % 72.3 Lymphocytes % 15.3 L Monocytes % 12.0 H Eosinophils % 0.4 Basophils % 0.1 Neutrophils # 4.8 Lymphocytes # 1.0 L Monocytes # 0.8 H Eosinophils # 0.0 Basophils # 0.0 Surgery Progress Note: A/P - Problem (1) Hiatal hernia with gastroesophageal reflux Current Visit: Yes Code(s): K21.9 - GASTRO-ESOPHAGEAL REFLUX DISEASE WITHOUT ESOPHAGITIS; K44.9 - DIAPHRAGMATIC HERNIA WITHOUT OBSTRUCTION OR GANGRENE Status: Acute Assessment and Plan: Mr. Quach is recovering well from his surgery yesterday. His CBC is WNL and he is without GERD symptoms overnight. He is tolerating liquids well and should be advanced to a soft food diet this morning. Will continue to monitor him for post-operative complications this morning and plan to discharge him today if he continues to do well. Plan to continue on soft foods and follow up in clinic in 2 weeks.
[2019-05-23] MEDS: Lactated Ringer's 1,000 ML IV SCH (08:14)
[2019-05-23 08:50] VITALS: TEMP 98.4
[2019-05-23] MEDS ORDERED: Amlodipine 10 MG TAB PO SCH (09:00)
[2019-05-23] MEDS ORDERED: Mirtazapine 15 MG TAB PO SCH (09:00)
[2019-05-23 11:31] VITALS: BP 124/77
== END 2019-05-23 13:27 | disposition home or self-care (01) | DRG 328 ==
LOC: SDC 05:48 → SJJU 12:23 → EDSTATUS 13:30
PROVIDERS: ADMIT Specialist; ATTEND Specialist
PROC: 0DV44ZZ Restriction of Esophagogastric Junction, Percutaneous Endoscopic Approach (ICD-10-PCS; principal; 2019-05-22)
PROC: 0BUT4JZ Supplement Diaphragm with Synthetic Substitute, Percutaneous Endoscopic Approach (ICD-10-PCS; 2019-05-22)
DX: K44.9 Diaphragmatic hernia without obstruction or gangrene (principal); D50.9 Iron deficiency anemia, unspecified; M41.9 Scoliosis, unspecified; F31.9 Bipolar disorder, unspecified; G47.00 Insomnia, unspecified; K21.9 Gastro-esophageal reflux disease without esophagitis
CPT/HCPCS: 36415; 80048; 85025; 93005; 93010; J0131; J0690; J1650; J1885; J2175; J3010; S0028

== ENCOUNTER 2020-10-22 14:22 | Outpatient (CLI) | payer MEDICARE, MEDICAID ==
--- NOTE | 2020-10-22 17:01 | BD ---
Exam: DEXA Bone Density 10/22/20 INDICATIONS: 70-year-old male for osteoporosis screening. Lumbar Spine: BMD (g/cm2) T-SCORE L1 0.754 -2.9 L2 0.766 -3.0 L3 0.709 -3.6 L4 0.856 -2.1 L1-L4 0.772 -2.9 Femoral Neck: 0.503 -3.1 Total Femur: 0.757 -1.8 Impression: Bone mineral density of the lumbar spine and femoral neck both indicate osteoporosis. POS: AGW
== END 2020-10-22 14:23 | disposition home or self-care (01) ==
LOC: BICMAMMO 14:22
PROVIDERS: ATTEND Family Medicine
DX: M81.0 Age-related osteoporosis without current pathological fracture (principal)
CPT/HCPCS: 77080

== ENCOUNTER 2022-05-15 12:26 | Emergency (ER) | payer MEDICARE, MEDICAID ==
[2022-05-15] MEDS ORDERED: Midazolam HCl 5 mg/ml Vial ONE (13:22)
[2022-05-15 13:32] LABS: #Monocytes 0.7 thou/uL (0.11-0.59); #Neutrophils 5.6 thou/uL (1.40-6.50); %Eosinophils 0.4 % (0.0-10.0); %Lymphocytes 13.9 % (21.0-51.0); %Monocytes 9.9 % (0.0-10.0); %Neutrophils 75.8 % (42.0-75.0); Hemoglobin 17.4 g/dL (14.0-18.0); Mean Corpuscular HGB CONC 31.9 g/dL (32.0-36.0); Mean Corpuscular Hemoglobin 29.8 pg (27.0-31.0); Mean Corpuscular Volume 93.4 fL (78.0-98.0); Platelet Count 173 thou/uL (130-400); RBC Distribution Width 15.6 % (11.5-14.5); Red Blood Cell (RBC) Count 5.84 mill/uL (4.70-6.10); White Blood Cell (WBC) Count 7.3 thou/uL (4.8-10.8)
[2022-05-15 13:44] LABS: INR-International Normal Ratio 0.9; PTT 29.7 sec (22.9-36.1); Prothrombin Time 12.5 sec (12.0-14.7)
[2022-05-15 14:05] LABS: ALT (SGPT) 25 U/L (8-55); AST (SGOT) 48 U/L (5-34); Albumin 4.1 g/dL (3.4-4.8); Alkaline Phosphatase 70 U/L (40-110); Anion Gap 20 mmol/L (10-20); BUN (Urea Nitrogen) 27 mg/dL (8.4-25.7); Bilirubin, Total 0.9 mg/dL (0.2-1.2); Calc. Creatinine Clearance 0 mL/min (70-130); Calcium 8.8 mg/dL (7.8-10.44); Carbon Dioxide 21 mmol/L (23-31); Chloride 101 mmol/L (98-107); Estimated GFR 93; Glucose 80 mg/dL (83-110); Lipase 16 U/L (8-78); Protein, Total 7.1 g/dL (5.8-8.1); Sodium 138 mmol/L (136-145)
[2022-05-15] MEDS ORDERED: PROPOFOL 20 ML ONE (16:53)
[2022-05-15 16:55] LABS: SARS-CoV-2 NAA Rapid Test Not Detected (NotDetected)
== END 2022-05-15 20:06 | disposition home or self-care (01) ==
LOC: ERS 12:26
DX: T18.5XXA Foreign body in anus and rectum, initial encounter (principal); Z20.822 Contact with and (suspected) exposure to COVID-19; M19.90 Unspecified osteoarthritis, unspecified site; D50.9 Iron deficiency anemia, unspecified; K21.9 Gastro-esophageal reflux disease without esophagitis
CPT/HCPCS: 74018; 74176; 80053; 83690; 85025; 85610; 85730; 96372; 99152; 99284; U0002; 36415; J2250; J2704